=== PATIENT | female | born 1960 | race Caucasian/White ===

== ENCOUNTER → 2018-03-28 | Outpatient (CLI) | payer OTHER | END | disposition home or self-care (01) | LOC: C.LAB1850 11:23 | PROVIDERS: ATTEND Internal Medicine Cardiovascular Disease | DX: E78.5 Hyperlipidemia, unspecified (principal) ==

== ENCOUNTER 2024-09-01 09:23 | Inpatient (IN) ==
--- NOTE | 2024-08-03 13:31 | PAT Medication Instructions ---
Medication Instructions Date of Service August 03, 2024 Home Medications albuterol sulfate 90 mcg/actuation aerosol inhaler 2 puffs inhalation Q6H PRN ipratropium 0.5 mg-albuterol 3 mg (2.5 mg base)/3 mL nebulization soln 3 ml inhalation Q6H PRN atorvastatin 40 mg tablet 40 mg PO QPM omeprazole 40 mg capsule,delayed release 40 mg PO QAM potassium chloride 10 mEq tablet,extended release 20 meq PO BID torsemide 20 mg tablet 100 mg PO BID benzonatate 200 mg capsule 100 mg PO TID PRN aspirin 81 mg capsule 81 mg PO QAM baclofen 10 mg tablet 10 mg PO TID dulaglutide 4.5 mg/0.5 mL subcutaneous pen injector (Trulicity) 4.5 mg subcut WK fluticasone fur. 100 mcg-umeclid 62.5 mcg-vilant 25 mcg inhalat.powder (Trelegy Ellipta) 1 inh inhalation QPM gabapentin 600 mg tablet 600 mg PO TID insulin aspart U-100 100 unit/mL (3 mL) subcutaneous pen (Novolog FlexPen U-100 Insulin aspart) See Rx Instructions .Route .COMPLEX insulin glargine 100 unit/mL (3 mL) subcutaneous pen (Lantus Solostar U-100 Insulin) 55 unit subcut QPM meloxicam 15 mg tablet 15 mg PO QAM montelukast 10 mg tablet 10 mg PO QAM oxycodone-acetaminophen 5 mg-325 mg tablet 1 tab PO HS PRN paroxetine HCl 10 mg tablet (Paxil) 10 mg PO QAM prochlorperazine maleate 10 mg tablet 10 mg PO UD PRN sertraline 50 mg tablet 50 mg PO QAM tramadol 50 mg tablet 50 mg PO Q8H PRN trazodone 50 mg tablet 50 mg PO HS PRN STOP 7 days before surgery dulaglutide 4.5 mg/0.5 mL subcutaneous pen injector (Trulicity) 4.5 mg subcut WK Continue as directed prochlorperazine maleate 10 mg tablet 10 mg PO UD PRN(if needed) ASK your surgeon for instructions meloxicam 15 mg tablet 15 mg PO QAM ASK your prescriber and surgeon aspirin 81 mg capsule 81 mg PO QAM DO NOT take the morning of surgery potassium chloride 10 mEq tablet,extended release 20 meq PO BID torsemide 20 mg tablet 100 mg PO BID benzonatate 200 mg capsule 100 mg PO TID PRN insulin aspart U-100 100 unit/mL (3 mL) subcutaneous pen (Novolog FlexPen U-100 Insulin aspart) See Rx Instructions .Route .COMPLEX Take morning of surgery With a small sip of water, OTHERWISE NOTHING TO EAT OR DRINK AFTER MIDNIGHT: albuterol sulfate 90 mcg/actuation aerosol inhaler 2 puffs inhalation Q6H PRN (use if needed; please bring with you to hospital day of surgery if possible) ipratropium 0.5 mg-albuterol 3 mg (2.5 mg base)/3 mL nebulization soln 3 ml inhalation Q6H PRN(if needed) omeprazole 40 mg capsule,delayed release 40 mg PO QAM baclofen 10 mg tablet 10 mg PO TID gabapentin 600 mg tablet 600 mg PO TID montelukast 10 mg tablet 10 mg PO QAM paroxetine HCl 10 mg tablet (Paxil) 10 mg PO QAM sertraline 50 mg tablet 50 mg PO QAM tramadol 50 mg tablet 50 mg PO Q8H PRN(if needed) Take evening before surgery albuterol sulfate 90 mcg/actuation aerosol inhaler 2 puffs inhalation Q6H PRN(if needed) ipratropium 0.5 mg-albuterol 3 mg (2.5 mg base)/3 mL nebulization soln 3 ml inhalation Q6H PRN(if needed) atorvastatin 40 mg tablet 40 mg PO QPM potassium chloride 10 mEq tablet,extended release 20 meq PO BID torsemide 20 mg tablet 100 mg PO BID benzonatate 200 mg capsule 100 mg PO TID PRN(if needed) baclofen 10 mg tablet 10 mg PO TID fluticasone fur. 100 mcg-umeclid 62.5 mcg-vilant 25 mcg inhalat.powder (Trelegy Ellipta) 1 inh inhalation QPM gabapentin 600 mg tablet 600 mg PO TID insulin glargine 100 unit/mL (3 mL) subcutaneous pen (Lantus Solostar U-100 Insulin) 55 unit subcut QPM oxycodone-acetaminophen 5 mg-325 mg tablet 1 tab PO HS PRN(if needed) tramadol 50 mg tablet 50 mg PO Q8H PRN(if needed) trazodone 50 mg tablet 50 mg PO HS PRN(if needed) Other Notes If you have any questions please call us at [phone] or [phone] or [phone] or [phone]
--- NOTE | 2024-08-09 14:24 | Anesthesiology Consultation ---
Date of Service August 09, 2024 Assessment & Plan (1) Encounter for pre-operative examination: Chart Review Chart Review: Pending: Refer to Additional Notes / Consult section (pending cardio clearance and response from PCP regarding CXR ) and Patient seen in Pre Admission Testing - Please set up cardio clearance with cardiac optimization form- patient requesting [facility] [place] [facility] - Please fax optimization form to PCP regarding abnormal CXR and if additional treatment or work up needed - Check BSG AM DOS - Patient is NOT an ideal OPJ candidate (currently 23 hour obs) Dexcom to upper arm- did educate patient to not place Dexcom to left upper extremity for DOS - Trulicity instructions: Patient takes on (Fridays). Patient informed at PAT visit to stop 7 days prior to surgery- voiced understanding. Currently Trulicity is on back order at the pharmacy. If patient restarts Trulicity prior to surgery- the last day she can take it would be Wednesday08/25/24 in the AM. Patient voices understanding Per PAT appt on 08/09/24, no recent illness/disease exposures, illness related symptoms, or recent illness/disease positive tests. Will leave to surgeon's discretion if preop Covid testing needed Teaching & Discussion Pre-Anesthesia Teaching/Discussion Notes: Instructed NPO after midnight before surgery,except medications with 15 cc of water. Medication instructions provided according to the PAT guidelines. History Surgery Operation Date: 09/01/24 08:00 Proposed Procedures p OP: Left Reverse Total Shoulder Arthroplasty - Aramis Hanson DO Height/Weight Height: 5 ft 2 in Weight: 126.9 kg Allergies Allergy/AdvReac Type Severity Reaction Status Date / Time moxifloxacin [From Avelox] Allergy Severe Difficulty Verified 08/02/24 12:13 Breathing Sulfa (Sulfonamide Allergy Mild Rash Verified 08/02/24 12:13 Antibiotics) Medications Home Medications Medication Instructions Recorded Confirmed Last Taken albuterol sulfate 90 mcg/actuation 2 puffs inhalation Q6H PRN asthma 05/10/19 08/02/24 Unknown aerosol inhaler ipratropium 0.5 mg-albuterol 3 mg 3 ml inhalation Q6H PRN asthma 05/10/19 08/02/24 Unknown (2.5 mg base)/3 mL nebulization soln atorvastatin 40 mg tablet 40 mg PO QPM 07/21/19 08/02/24 Unknown omeprazole 40 mg capsule,delayed 40 mg PO QAM 07/21/19 08/02/24 Unknown release potassium chloride 10 mEq 20 meq PO BID 07/21/19 08/02/24 Unknown tablet,extended release torsemide 20 mg tablet 100 mg PO BID 03/06/20 08/02/24 Unknown benzonatate 200 mg capsule 100 mg PO TID PRN Cough 09/09/20 08/02/24 Unknown aspirin 81 mg capsule 81 mg PO QAM 08/02/24 08/02/24 Unknown baclofen 10 mg tablet 10 mg PO TID 08/02/24 08/02/24 Unknown dulaglutide 4.5 mg/0.5 mL 4.5 mg subcut WK 08/02/24 08/02/24 Unknown subcutaneous pen injector (Trulicity) fluticasone fur. 100 mcg-umeclid 1 inh inhalation QPM 08/02/24 08/02/24 Unknown 62.5 mcg-vilant 25 mcg inhalat.powder (Trelegy Ellipta) gabapentin 600 mg tablet 600 mg PO TID 08/02/24 08/02/24 Unknown insulin aspart U-100 100 unit/mL See Rx Instructions .Route .COMPLEX 08/02/24 08/02/24 Unknown (3 mL) subcutaneous pen (Novolog FlexPen U-100 Insulin aspart) insulin glargine 100 unit/mL (3 55 unit subcut QPM 08/02/24 08/02/24 Unknown mL) subcutaneous pen (Lantus Solostar U-100 Insulin) meloxicam 15 mg tablet 15 mg PO QAM 08/02/24 08/02/24 Unknown montelukast 10 mg tablet 10 mg PO QAM 08/02/24 08/02/24 Unknown oxycodone-acetaminophen 5 mg-325 1 tab PO HS PRN Pain 08/02/24 08/02/24 Unknown mg tablet paroxetine HCl 10 mg tablet (Paxil) 10 mg PO QAM 08/02/24 08/02/24 Unknown prochlorperazine maleate 10 mg 10 mg PO UD PRN Nausea 08/02/24 08/02/24 Unknown tablet sertraline 50 mg tablet 50 mg PO QAM 08/02/24 08/02/24 Unknown tramadol 50 mg tablet 50 mg PO Q8H PRN Pain 08/02/24 08/02/24 Unknown trazodone 50 mg tablet 50 mg PO HS PRN Sleep 08/02/24 08/02/24 Unknown Past Medical History Medical History (Updated 08/10/24 @ 10:12 by Cleo Fleming PA-C) Asthma breathing stable Autoimmune hepatitis (1991) dx 1991, treated at [facility] in [place] x 4 months - in remission x 10 years Bilateral lower leg cellulitis occasional- no current issues Chest pain intermittent x years; associated with COPD flares gets chest discomfort with activity Chronic diastolic (congestive) heart failure Occ LE edema stable Chronic pain COPD (chronic obstructive pulmonary disease) DDD (degenerative disc disease), lumbar Diabetes mellitus recently on Prednisone (for COPD exacerbation) - had significantly elevated glucose Difficult intravenous access Usually needs IV team Dyspnea on exertion has a scooter for long-distance travel Emphysema lung History of anesthesia reaction difficult to wake History of postoperative nausea and vomiting HLD (hyperlipidemia) Hx of deep venous thrombosis (1986) both legs, after , blood thinners at time, no clots since only on ASA currently Hypertension Sinus infection (07/30/24) sx started 07/30/24, saw pcp 08/04/24 (given Z pack), home covid neg 07/30/24, cough - yellow/green, congestion, nasal congestion - feels better as of 08/09/24 Sleep apnea cpap Stage 3 chronic kidney disease Exercise / Class Metabolic Activity III < 4 Walking/Shop/Light housework (mild SOB with short distance, flat surface ambualtion ) Past Surgical History Surgical History History of bilateral knee replacement History of carpal tunnel surgery of right wrist History of decompression of both ulnar nerves Hx of cervical spine surgery x2, unsure of level, has "cages", full rom Hx of cholecystectomy Hx of resection of large bowel (2018) 10 inches removed due to mesh from hernia fistula repaired 17.5 pounds of fatty tissue removed Hx of tonsillectomy Hx of umbilical hernia repair x7 Past Anesthesia History No Hx of Anesthesia Complications (with exception to PONV; slow to wake with anesthesia ) and No Family Hx of Anesthesia Complications (with exception to slow to wake (no reintubation or ICU stay)) History of PONV No Hx of Motion Sickness and History of PONV (usually given pre op anti nausea medication- helps with symptoms ) Social History Smoking Status: Current every day smoker Smoking cigarettes per day: smokes 1/2 ppd (advised) Do You Dip or Chew Tobacco: No Hx Alcohol Use: No Hx Substance Use: No substance use type: does not use Review of Systems - Chest pain- present x years - usually with activity. Feels due to COPD- usually has trouble breathing. Noted to center part of chest. Squeezing/pressure discomfort. Can last minutes- improves once breathing improves. No radiation of discomfort. No nausea. Usually occurs happens daily if COPD exacerbated. - Chronic wheezing/chronic mild cough secondary to COPD Patient denies shortness of breath at rest, reflux, palpitations. No hx of seizures, stroke, PA. No hx of blood transfusions Physical Exam Vital Signs VITALS BP 107/67 P 72 TEMP 98.7 SP02 93% on RA RESP 16 Constitutional no acute distress ENMT Mouth: no TMJ clicking Thyromental Distance: > or= 3.5 Finger Breadths (3.5) Mallampati Class: III Full denture on the top Bottom partial denture Neck + short neck, + thick neck and + limited neck extension (mild ) Respiratory normal respiratory effort; no respiratory distress Auscultation: + diminished lung sounds (throughout ) Mild wheezing throughout Cardiovascular Rate/Rhythm: regular rate and regular rhythm Heart Sounds: no murmur Vessels: no carotid bruit Heart sound diminished throughout Musculoskeletal Spine: no pain with cervical ROM Extremities: extremities normal to inspection Psychiatric Orientation: alert Lab Results Anesthesia Preop Results Results Anesthesia Widget: WBC 12.24 K/ul (4.8-10.8) H 08/09/24 Hgb 11.7 g/dl (12.0-16.0) L 08/09/24 Hct 35.3 % (37.0-47.0) L 08/09/24 Plt 240 K/uL (130-400) 08/09/24 Na 140 mmol/L (136-145) 08/09/24 K 3.9 mmol/L (3.5-5.1) 08/09/24 Cl 100 mmol/L (98-107) 08/09/24 CO2 29 mmol/L (21-32) 08/09/24 BUN 30 mg/dl (6-23) H 08/09/24 Creat 1.42 mg/dl (0.6-1.2) H 08/09/24 Glucose Level 247 mg/dl (70-99(Fasting)) H 08/09/24 PT 10.4 Seconds (9.0-12.0) 08/09/24 PTT 25 Seconds (21-31) 08/09/24 INR 1.0 (0.9-1.1) 08/09/24 HA1c 8.6 % (4.5-5.6) H 08/09/24 Blood Type O Positive 08/09/24 Antibody Screen NEGATIVE 08/09/24 Testing Laboratory Results Elevated creatinine - chronic and stable from previous records Elevated Hgb A1C- surgeon's office informed- will leave to surgeon's discretion on how to proceed Electrocardiogram Date: 08/09/24 Findings: + NSR @ (72bpm) Normal EKG per cardio Chest X-Ray Date: 08/09/24 FINDINGS: Cardiomediastinal silhouette is within normal limits. Scattered perihilar peribronchial cuffing can be seen in bronchitis. Questionable left midlung pneumonia. No pleural effusion or pneumothorax. No acute osseous abnormalities. Intervertebral disc spacer projects over the lower cervical spine. IMPRESSION: Questionable left midlung pneumonia with scattered perihilar peribronchial cuffing which can be seen in bronchitis. (Patient recently ill with "sinus infection"- seen by PCP and given Z pack 08/04/24 which was completed per patient. Will send CXR to PCP to see if additional treatment or work up needed. Patient states symptoms improved but still has slight residual- educated symptoms will need fully resolved by DOS)
[~2024-09-01 09:23] MED LIST: BUPIVACAINE 0.5 % 5 MG/1 ML PF 10ML VIAL ONE
[2024-09-01] MEDS: dexAMETHasone**PF** 10 MG/ML VIAL IV SCH (09:54)
[2024-09-01] MEDS: ACETAMINOPHEN 500 MG TAB PO SCH ×2 (09:54→14:27)
[2024-09-01] MEDS: LR 60ML/HR IV SCH (09:55)
[2024-09-01] MEDS: LR 15ML/HR IV SCH (09:55)
[2024-09-01] MEDS: GABAPENTIN 600 MG DOSE PO SCH (09:55)
[2024-09-01] MEDS: FAMOTIDINE 20 MG TAB PO SCH (09:55)
--- NOTE | 2024-09-01 10:08 | History & Physical Bridge Note ---
Date of Service September 01, 2024 History & Physical Bridge Note I have examined the patient, reviewed the History & Physical and in the interval since the performance of the History & Physical I have noted the following changes of clinical significance: no changes noted
[2024-09-01] MEDS ORDERED: fentaNYL citrate PF 100 MCG/2 ML VIAL ONE (10:18)
[2024-09-01] MEDS ORDERED: LIDOCAINE 2% 2 ML VIAL/AMP(20MG/ML) INFIL ONE (10:18)
[2024-09-01] MEDS ORDERED: MIDAZOLAM HCL 1 MG/ML 2ML VIAL ONE (10:18)
[2024-09-01] MEDS ORDERED: PROPOFOL IV EMULSION 10 MG/ML 20 ML VIAL IV ONE ×2 (10:18→10:21)
[2024-09-01] MEDS ORDERED: ONDANSETRON INJ 2 MG/ML 2 ML VIAL ONE (10:42)
[2024-09-01] MEDS: TRANEXAMIC ACID 1,000 MG **IV Pre-op IV SCH (10:49)
[2024-09-01] MEDS ORDERED: ATROPINE SULFATE 0.1 MG/ML 10ML SYR IV PRN (10:51)
[2024-09-01] MEDS ORDERED: ePHEDrine sulfate 50 MG/ML AMP IV PRN (10:51)
[2024-09-01] MEDS ORDERED: HYDROmorphone INJ 1 MG/ML SYRINGE IV PRN (10:51)
[2024-09-01] MEDS ORDERED: fentaNYL citrate PF 100 MCG/2 ML VIAL IV PRN (10:51)
[2024-09-01] MEDS ORDERED: ONDANSETRON INJ 2 MG/ML 2 ML VIAL IV PRN ×2 (10:51→13:59)
[2024-09-01] MEDS: ceFAZolin 3000MG 3,000 MG/72.5 ML BAG IV SCH (11:03)
[2024-09-01] MEDS ORDERED: BUPIVACAINE 0.5 % 5 MG/1 ML PF 10ML VIAL ONE (11:29)
[2024-09-01] MEDS: ROPIV 0.5% 246mg, Ketorolac 30mg, EPINEPHrine 0.5mg in NSS INFIL SCH (11:43)
--- OUTSIDE RECORDS SUMMARY | 2024-09-01 12:00 | External Medical Summary | Summary of Care ---
Author Name Unknown Organization [facility] Address [address] [place] [address] Phone [phone] Care Team Providers Care Burial Agent Name Role Phone PrettyGerri viera Parish DIOP Primary Care Provider [phone] Reason for Visit * Reason Onset Date Comments Follow Up 08/31/2024 Encounter Details Date Type Department Care Team (Late st Contact Info) Description 08/31/2024 12:30 PM EST Scheduled Telephone [facility] [place] [address] [place] [address] Rosa Gomez, RN [address] [place] [address] Allergies Active Allergy Reactions Criticality Noted Date Comments Moxifloxacin Hcl In Nacl Edema airway,Nausea/vomiti ng High 02/20/2010 Birds Wheezing 11/24/2016 Cephalosporins Hives 04/04/2018 Doxycycline Hyclate Nausea/vomiting 04/04/2018 Cephalexin Other (Please comment) 07/07/2018 Mouth was raw Ranitidine Rash 04/04/2018 Semaglutide 05/03/2024 Sulfa Antibiotics Anaphylaxis High 03/19/2018 Difficulty breathing Tetracycline 12/22/2023 Other Reaction(s): blisters on tongue documented as of this encounter (statuses as of 08/31/2024) Medications CPAP every night at bedtime. Apply prongs to nose daily at bedtime, settings 08/15 Active Artificial Tears 0.1-0.3 % Ophthalmic Solution (Dextran 70-Hypromellose) Instill into eye. Active Global Ease Inject Pen [place] 31G X 5 MM (Insulin Pen Needle)Indication s:Type 2 diabetes mellitus with hemoglobin A1c goal of less than 7.0% (HCC) Use up to four times daily as directed 400 Each 2 06/15/ 022 Active Albuterol Sulfate 2.5 MG/0.5ML Inhalation Nebulization Solution Inhale 0.5 mL via nebulizer every 4 hours as needed for Wheezing. Active Nebulizer Device Use as directed. Active OneTouch Ultra In Vitro Strip (Glucose Blood)Indications :Type 2 diabetes mellitus with hemoglobin A1c goal of less than 7.0% (HCC) TEST 3 TIMES A DAY. E11.9 300 Strip 3 023 Active OneTouch UltraSoft LancetsIndication s:Type 2 diabetes mellitus with hemoglobin A1c goal of less than 7.0% ([facility]) TEST 3 TIMES A DAY. E11.9 100 Each 3 023 Active Albuterol Sulfate HFA 108 (90 Base) MCG/ACT Inhalation Aerosol SolutionIndicatio ns:COPD, group C, by GOLD 2017 classification ([facility]) TAKE 2 PUFFS BY MOUTH 4 TIMES A DAY NEEDED FOR SHORTNESS OF BREATH OR WHEEZING. 54 g 1 023 Active Omeprazole 40 MG Oral Capsule Delayed Release (PriLOSEC)Indicat ions:Gastroesopha geal reflux disease without esophagitis Take 1 Capsule by mouth in the morning. 1 hour before the first meal of the day. 90 Capsule 2 023 Active buPROPion HCl ER (SR) 200 MG Oral Tablet Extended Release 12 Hour (Wellbutrin SR) Take 1 Tablet by mouth in the morning and 1 Tablet before bedtime. 180 Tablet 2 023 Active Montelukast Sodium 10 MG Oral Tablet (Singulair) Take 1 Tablet by mouth in the morning. 90 Tablet 1 023 Active Trelegy Ellipta 100-62.5-25 MCG/ACT Aerosol Powder Breath Activated (Fluticasone-Umec lidinium-Vilanter ol) Inhale 1 Puff by mouth in the morning. 60 Blister Dosing Unit 11 023 Active Additional Information Patient taking differently:1 Puff InhalationONCE, Reported on 08/22/2024 Sertraline HCl 50 MG Oral Tablet (Zoloft) Take 1 Tablet by mouth in the morning. 30 Tablet 5 Active Insulin Glargine Solostar 100 UNIT/ML Subcutaneous Solution Pen-injector (Lantus SoloStar)Indicati ons:Type 2 diabetes mellitus with hemoglobin A1c goal of less than 7.0% ([facility]) Inject 55 Units under the skin daily. 45 mL 3 023 Active NovoLOG FlexPen 100 UNIT/ML Subcutaneous Solution Pen-injector (insulin aspart) Inject 20 Units under the skin in the morning and 20 Units at noon and 20 Units in the evening. Inject before meals. - Subcutaneous - please DC VIALs - call patient when ready 60 Each 3 Active Additional Information Patient taking differently: 25 Units WITH MEALS, Inject 20 Units under the skin in the morning and 20 Units at noon and 25 Units in the evening. Inject before meals. - SubcutaneousEvening dose increased to 25 units on 08/04/2024, Reported on 08/22/2024 Prochlorperazine Maleate 10 MG Oral Tablet (Compazine) Take 1 Tablet by mouth every 6 hours as needed for Nausea. 10 Tablet Active Additional Information Patient not taking.Reported on 08/22/2024 Meloxicam 15 MG Oral Tablet (Mobic) Take 1 Tablet by mouth in the morning. for pain.. 90 Tablet 2 Active Trulicity 4.5 MG/0.5ML Subcutaneous Solution Pen-injector (Dulaglutide) Inject 4.5 mg under the skin once a week. Wednesday's 6 mL 3 Active Additional Information Patient taking differently: 1.5 mgSubcutaneous QWEEK, Wednesday'sChanged to 1.5 mg at PCP visit on 08/04, Reported on 08/22/2024 Atorvastatin Calcium 40 MG Oral Tablet (Lipitor)Indicati ons:Chronic diastolic congestive heart failure (HCC) TAKE ONE TABLET BY MOUTH EVERY MORNING 90 Tablet 3 024 Active Potassium Chloride Carmen ER 20 MEQ Oral Tablet Extended Release (Klor-Con M20) Take 1 Tablet by mouth in the morning and 1 Tablet before bedtime. 180 Tablet Active Torsemide 100 MG Oral Tablet (Demadex) TAKE BY MOUTH 1 TABLET IN THE MORNING AND 1 TABLET BEFORE BEDTIME. 180 Tablet 1 Active Baclofen 10 MG Oral Tablet (Lioresal) Take 1 Tablet by mouth in the morning and 1 Tablet at noon and 1 Tablet before bedtime. Ac tive Acetaminophen ER 650 MG Oral Tablet Extended Release (Tylenol 8 Hour Arthritis Pain) Take 1 Tablet by mouth every 8 hours as needed. Active Systane Complete 0.6 % Ophthalmic Solution (Propylene Glycol) Instill 1 Drop into eye 4 times a day as needed for Dry eyes. 10 mL 12 Active Ipratropium-Albut gregg 0.5-2.5 (3) MG/3ML Inhalation Solution (Duoneb) Inhale 3 mL by mouth every 6 hours as needed. Active traMADol HCl 50 MG Oral Tablet (Ultram) Take 1 Tablet by mouth every 8 hours as needed for Pain, Moderate. Active Fenofibrate 145 MG Oral Tablet (Tricor) Take 1 Tablet by mouth in the morning. Active Gabapentin 300 MG Oral Capsule (Neurontin) Take 800 mg by mouth in the morning and 800 mg at noon and 800 mg before bedtime. Active Dexcom G7 Motor Vehicle Assembler Device Use as directed. Active Dexcom G7 Sensor Use as directed every 10 days. Active oxyCODONE HCl 5 MG Oral Capsule (Oxy IR) Take 1 Capsule by mouth 2 times a day as needed for Pain, Severe. Active documented as of this encounter (statuses as of 08/31/2024) Active Problems Problem Noted Date Diagnosed Date DDD (degenerative disc disease), lumbar 09/15/19 24 Assessment & Plan (08/21/2024 7:31 AM EST): Tramadol 50mg Q8hrs prn Tylenol ER 650 Q8H prn Baclofen 10mg TID prn Gabapentin 300mg TID Chronic kidney disease, stage 3b 02/08/2023 Overview: Per CKD protocol Benign hypertension with stage 3b chronic kidney disease 02/08/2023 Overview: Per CKD protocol Age-related nuclear cataract of both eyes 2022 Blurred vision, bilateral 06/25/2022 Impaired mobility and endurance 06/06/2022 Type 2 diabetes mellitus with hyperglycemia 01/2022 Assessment & Plan (08/16/2024 8:10 AM EST): Has not had any BSGs > 250mg/dl since being discharged from the hospital. [facility] is out of [employer]. Recommended pt call other local pharmacies and have prescription transferred to a pharmacy that has [employer] in stock. Last A1C was 8.1 on 08/02/24 Novolog flex pen Lantus insulin Has Geoffrey Chronic heart failure with p reserved ejection fraction (HFpEF) 06/04/2022 Asthma, moderate persistent 05/08/2022 COPD, group D, by GOLD 2017 classification 02/09 Overview: Per COPD GOLD Classification Assessment & Plan (08/16/2024 7:56 AM EST): Trelegy 1 puff daily, Singulair 10mg daily, Albuterol HFA prn, Duonebs TID, Albuterol nebs prn Smoking cessation discussed. Pt actively trying to quit. Controlled substance agreement terminated 2021 Overview (06/24/2023): CKD, CHF, EDY in place UDS showing none of prescribed med. Has MTDM visit 07/06/23 Amee Malone MD 06/24/2023 Polyneuropathy, unspecified 09/02/2021 Atherosclerosis of [place] co ronary artery without angina pectoris 09/02/2021 Assessment & Plan (08/16/2024 7:52 AM EST): Atorvastatin 40mg daily Followed by cardiology Major depressive disorder with single episode History of 2019 novel coronavirus disease (COVID -19) 09/02/2021 Secondary diabetes mellitus with HHNC (hyperglycemia hyperosmolar non-ketotic coma) 08/27/2021 Hypomagnesemia 08/27/2021 Obesity hypoventilation syndrome 08/09/2021 Food insecurity 04/07/2021 Overview: Per [facility] Protocol At high risk for falls 10/25/2020 Gastroesophageal reflux disease without esophagi tis 10/17/2020 Assessment & Plan (08/21/2024 7:25 AM EST): Omeprazole 40mg daily Ambulatory dysfunction 09/20/2020 Assessment & Plan (08/21/2024 7:31 AM EST): Uses walker Fall at home 09/20/2020 Hyponatremia 09/19/2020 Transaminitis 12/25/2019 Morbid obesity 09/12/2019 Hypertensive heart and kidne y disease with chronic diastolic congestive heart failure and stage 3b chronic kidney disease 04/11/2019 Assessment & Plan (08/21/2024 7:24 AM EST): HF - Torsemide 100mg daily, Potassium 20mEq BID. Weighs daily and keeps a log. Type 2 diabetes mellitus wit h stage 3b chronic kidney disease, with long-term current use of insulin 04/11/2019 Assessment & Plan (08/16/2024 8:09 AM EST): [facility] is out of [employer]. Recommended pt call other local pharmacies and have prescription transferred to a pharmacy that has [employer] in stock. Last A1C was 8.1 on 08/02/24 Novolog flex pen Lantus insulin Has Geoffrey Morbid obesity with BMI of 50.0-59.9, adult 01/28 Overview: Per Obesity protocol - Primary osteoarthritis involving multiple joints 11/09/2018 Seasonal allergic rhinitis 11/09/2018 Chronic diarrhea 11/09/2018 History of resection of large bowel 11/09/2018 Atherosclerosis of aorta 09/08/2018 Body mass index (BMI) greater than or equal to 7 0 in adult 08/08/2018 Overview: Per Obesity protocol #1 Polypharmacy 05/18/2018 Chronic pain syndrome 04/06/2018 MARCELL (obstructive sleep apnea) 04/08/2010 Assessment & Plan (08/16/2024 7:56 AM EST): Has bipap COUGHLIN RESEARCH OTHER*[id number] 04/08/2010 HTN, goal below 140/90 03/24/2010 Mood disorder 03/24/2010 Overview (06/22/2017): ICD-10 update of inactive term Chronic bronchitis 03/24/2010 Tobacco use disorder 12/06/2009 Cervical radiculopathy at C5 Chronic midline low back pain with sciatica Dyslipidemia, goal LDL below 100 Assessment & Plan (08/16/2024 8:02 AM EST): Atorvastatin 40mg daily documented as of this encounter (statuses as of 08/31/2024) Resolved Problems Problem Noted Date Diagnosed Date Resolved Date Hypokalemia 11/20/2022 09/15/2023 Accessory skin tags 11/20/2022 09/15/19 24 Acute non-recurrent frontal sinusitis 06/25/2022 07/14/2023 Stage 3b chronic kidney disease 06/05/2022 02/11/2023 Diarrhea 06/05/2022 06/07/2022 Hyponatremia 06/04/2022 06/07/2022 CHRIS (acute kidney injury) 06/04/2022 Asthma in remission 05/08/2022 05/08/20 Asthma, mild persistent 05/08/202206/30 Intermittent asthma with rel iever use up to twice per week 05/08/2022 07/14/2023 Chronic kidney disease, stage 3a 03/09/2022 02/11/2023 Overview: Per CKD protocol COVID-19 virus infection 08/27/2021 Urinary retention 08/09/2021 08/11/2021 Anemia 08/09/2021 08/11/2021 SOB (shortness of breath) 08/05/2021 History of recent fall 10/25/202009/02 Hyperparathyroidism 10/17/2020 09/02/19 22 Closed nondisplaced fracture of condyle of right femur with nonunion 09/21/2020 09/02/2021 Generalized weakness 09/20/2020 021 Chronic kidney disease, stage IV (severe) 09/20/2020 10/10/2020 Right knee pain 09/20/2020 07/14/2023 Acute on chronic heart failu re with preserved ejection fraction 05/16/2020 07/14/2023 Acute on chronic kidney failure 12/25/2019 08/11/2021 Hyponatremia 12/25/2019 09/12/2021 Metabolic acidosis, increased anion gap (IAG) 12/25/19 20 12/27/2019 Dehydration 12/25/2019 12/27/2019 Leukocytosis 12/25/2019 12/27/2019 Autoimmune hepatitis 04/11/2019 020 Morbid obesity 04/11/2019 05/12/2019 Type 2 diabetes mellitus wit h hemoglobin A1c goal of less than 7.0% 03/12/2019 09/15/2023 Heart failure, diastolic, wi th acute decompensation 02/10/2019 08/11/2021 Type 2 diabetes mellitus wit h chronic kidney disease 02/10/2019 03/12/2019 COPD exacerbation 02/06/2019 08/11/2021 Overview: Per COPD GOLD Classification SIRS (systemic inflammatory response syndrome) 11/09/2018 02/10/2019 Generalized abdominal pain 11/09/2018 0 03/12/2019 Other chest pain 11/09/2018 03/12/2019 Influenza A 11/09/2018 12/06/2018 Pneumonia due to infectious organism 11/09/2018 12/06/2018 Benign hypertension with CKD (chronic kidney disease) stage III 07/11/2018 07/16/2022 Overview: Per CKD protocol #1 Hypokalemia 03/22/2018 09/02/2021 Intentional drug overdose 03/19/2018 Intentional acetaminophen poisoning 03/19/2018 09/02/2021 Symptomatic cholelithiasis 01/15/2017 0 09/12/2021 DVT prophylaxis 10/23/2015 03/12/2019 Panniculitis 07/22/2015 10/16/2019 ATN (acute tubular necrosis) 07/22/2015 10/16/2019 Rhinovirus infection 07/07/2015 023 Chronic obstructive pulmonar y disease with acute exacerbation 07/06/2015 03/12/2019 Abrasion and/or friction bur n of abdominal wall with infection 01/24/2012 03/12/2019 FLORECITA Study Research*[id number] 12/12/2010 02/16/2011 Adult body mass index 60.0-69.9 12/03/2010 08/12/2018 Overview: Per Obesity protocol #1 Body mass index (BMI) of 40.0-44.9 in adult 06/13/2010 12/03/2010 Overview (2015): ICD-10 update of inactive term [employer] Research*[id number] 05/12/2010 10/18/2018 Overview (11/10/2015): Effect of Bariatric Surgery on Obesity-Related Retinopathy Obesity, morbid (more than 1 00 lbs over ideal weight or BMI > 40) 12/06/2009 07/15/2018 Overview (11/18/2015): ICD-10 update of inactive term COPD, severity to be determined 12/06/2009 02/12/2022 Hepatitis 10/03/2002 10/16/2019 Anxiety state 10/03/2002 03/12/2019 Dyslipidemia, goal to be determined 10/03/2002 04/05/2019 Asthma 07/14/2023 documented as of this encounter (statuses as of 08/31/2024) Immunizations Name Administration Dates Next Due COVID-19 mRNA, LNP-s, No Pre serve, 2-Dose Series (AAVLife) 11/27/2020,11/01/2020 Hepatitis B, 20+ yrs 02/07/2020,08/21/2019,07/12 Pneumococcal Conjugate Vacc, 13 Valent (Prevnar) 09/04/2020 Pneumococcal Polysaccharide PPV23 (Pneumovax) 05/11/2019 Seasonal Influenza, PF, 6 M & above, IM , (FluLaval or Fluzone) 07/14/2023,05/08/2022,05/08/2021,06/11,05/11/2019 Seasonal Influenza, Quadriva lent, No Preserve, IM 06/24/2016 TDAP (age 10 and older)(Boostrix) 07/12/2019 Zoster Vaccine Recombinant (Shingrix) 01/15/2020 ,09/12/2019 documented as of this encounter Social History Tobacco Use Types Packs/Day Years Used Date Smoking Tobacco: Former Cigarettes 0.5 36.7 0 05/20/1987 - 02/08/2024 Smokeless Tobacco: Never Alcohol Use Standard Drinks/Week Comments No 0 (1 standard drink = 0.6 oz pur e alcohol) PHQ-2 Answer Date Recorded PHQ Adult Total Score 2 12/22/2023 Hunger Vital Sign Answer Date Recorded Within the past 12 months, y ou worried that your food would run out before you got the money to buy more. Sometimes true Within the past 12 months, t he food you bought just didn't last and you didn't have money to get more. Sometimes true Childcare Answer Date Recorded Do you feel overwhelmed with taking care of a child, family member or friend? No 08/22/2024 Does your family need help f inding childcare? (Household - for ages 0-17 years) Not on file 08/22/2024 Clothing Answer Date Recorded Have you been unable to get clothing when it was really needed? No 08/22/2024 Is your family able to get c lothes or diapers when needed? (Household - for ages 0-17 years) Not on file 08/22/2024 Personal Safety Answer Date Recorded Do you feel unsafe or have concerns for your saf ety? No 08/22/2024 Do you have concerns for you r family's safety? (Household - for ages 0-17 years) Not on file 08/22/2024 Utilities Answer Date Recorded Do you have trouble paying y our heating, water, or electric bill? No 08/22/2024 Is your family able to pay t he heat, water, or electric bill? (Household - for ages 0-17 years) Not on file 08/22/2024 Does your family have access to good internet? (Household - for ages 0-17 years) Not on file 08/22/2024 Employment Status Answer Date Recorded Are you unemployed or without regular income? No 08/22/2024 Does the household have a re gular source of income? (Household - for ages 0-17 years) Not on file 08/22/2024 Social Connections Answer Date Recorded How often do you feel lonely or isolated from th ose around you? Often 08/22/2024 Financial Resource Strain Answer Date R ecorded Do you have any trouble payi ng for your medications, or do you think you might in the future? No 08/22/2024 Does your family have troubl e paying for medicine? (Household - for ages 0-17 years) Not on file 08/22/2024 Transportation Needs Answer Date Record ed READ ONLY Do you have troubl e getting a ride to medical visits or work? Never True 08/22/2024 Does your family have a hard time getting a ride to doctors visits? (Household - for ages 0-17 years) Not on file 08/22/2024 Has lack of transportation k ept you from medical appointments, meetings, work, or from getting things needed for daily living? Check all that apply. No 08/22/2024 Do you (or your family) have trouble finding or paying for a ride (transportation)? (Household - for ages 0-17 years) Not on file 08/22/2024 Housing Stability Answer Date Recorded Do you currently live in a s helter or have no steady place to sleep at night? No 08/22/2024 READ ONLY Do you think you a re at risk of becoming homeless? No 08/22/2024 Does your family worry about paying for your home or becoming homeless? (Household - for ages 0-17 years) Not on file 1 10/23/2023 Are you homeless or worried that you might be in the future? No 08/22/2024 Are you (or your family) miladis eless or worried that you might be in the future? (Household - for ages 0-17 years) Not on file Food Insecurity Answer Date Recorded Do you need food for this week? No 08/22/2024 Are you able to get enough f ood for your family? (Household - for ages 0-17 years) Not on file 08/22/2024 Does your family need food t his week? (Household - for ages 0-17 years) Not on file 08/22/2024 Do you always have enough fo od for your family? (Household - for ages 0-17 years) Not on file 08/22/2024 Comments No Sex and Gender Information Value Date Recorded Sex Assigned at Female 02/10/2019 2:06 PM EDT Legal Sex Female 5:23 AM EST Gender Identity Female 02/10/2019 2:06 PM EDT Sexual Orientation Straight 02/10/2019 2: 06 PM EDT Occupation Industry Job Start Date Job End Date disabled secondary to hepatitis Not on file Not on fi le Not on file documented as of this encounter Functional Status * Are you deaf or do you have serious difficulty hearing? Answer Date of Assessment Author No 06/04/2022 11:05 PM EDT Radha Nunez RN * Are you blind or do you have serious difficulty seeing, even when wearing glasses? Answer Date of Assessment Author No 06/04/2022 11:05 PM EDT Radha Nunez RN * Do you have serious difficulty walking or climbing stairs? (5 years old or older) Answer Date of Assessment Author Yes 06/05/2022 2:10 PM EDT Ivan Haines MSW * Do you have difficulty dressing or bathing? (5 years old or older) Answer Date of Assessment Author No 06/04/2022 11:05 PM EDT Radha Nunez RN * Because of a physical, mental, or emotional condition, do you have difficulty doing errands alone such as visiting a doctors office or shopping? (15 years old or older) Answer Date of Assessment Author No 06/04/2022 11:05 PM LORRAINET Radha Nunez RN documented as of this encounter Mental Status * Because of a physical, mental, or emotional condition, do you have serious difficulty concentrating, remembering, or making decisions? (5 years old or older) Answer Entry Date Author No 06/04/2022 11:05 PM LORRAINET Radha Nunez RN documented in this encounter Miscellaneous Notes * Telephone Encounter - Rosa Gomez RN - 08/31/2024 3:31 PM EST Patient sent text to my work phone requesting a call: Placed call and Abbi answers and reports surgery is scheduled for tomorrow 09/01/24 arrival at 9:30 amand surgery @ 11 am. Her niece is taking her and she is expected to have an overnight stay. She is scheduled for left total shoulder replacement at [facility] with Dr. Hanson. She is fearful because she lives alone she will not be able to care for herself independently. She reports when they called to give her time of arrival for surgery to discuss with team tomorrow. I recommended she call the back of her insurance card to see if her insurance would cover a short term stay at SNF for rehab. She is agreeable to SNF for rehab. I made her aware after her surgery she should be evaluated by PT/OT and if she feels she cannot care for herself independently she needs to let them know. She verbalizes understanding of above. I consulted with SERENE Mar and my RM Yg that validated the above information. I am scheduled 09/05/24 post surgery HV. documented in this encounter Plan of Treatment Upcoming Encounters Date Type Department Care Team (Late st Contact Info) Description 09/05/2024 4:00 PM EST Home Visit [facility] [place] [address] [place] [address] Rosa Gomez RN [address] [place] [address] 01/10/2025 2:00 PM EDT Office Visit Optometry, [facility] [address] [place] [address] Aramis Alvarado, OD [address] [place] [address] Health Maintenance Due Date Last Done Comments HPV/Co-Test 12/11/1991 Cologuard 2006 Colonoscopy 2006 Colorectal Cancer Screening 2006 Fecal Occult Blood Test 2006 Sigmoidoscopy 2006 Cervical Cancer Screening 11/25/2019 Pap Smear 11/25/2019 11/24/2016 (Refu sed), 10/19/2002 COVID-19 Vaccine (3 - Pfizer risk series) 12/25/2020 11/27/2020, 11/01/2020 Mammogram 12/05/2023 12/04/2022, 07/30, 10/24/2002 CKD PHOS USE SMARTSET [id number] 02/20/2024 06/2 10/2022, 08/27/2021, 08/10/2021, Additional history exists Albumin/Creatinine Ratio 03/01/2024 023, 05/08/2022, 08/15/2019, Additional history exists Diabetic Foot Exam 07/14/2024 07/14/2023, 1 09/13/2022, 06/15/2022, Additional history exists Diabetic Eye Exam 12/16/2024 12/17/2023, , 12/17/2023, Additional history exists Depression Monitoring 12/21/2024 12/22/2023 HbA1c 01/31/2025 08/02/2024, 050 04/2024, 09/15/2023, Additional history exists GFR 02/05/2025 08/07/2024, 1211/2023, 03/05/2024, Additional history exists CKD HGB USE SMARTSET [id number] 08/07/202508/07, 08/07/2024, 08/02/2024, Additional history exists O2 ASSESSMENT COMPLETED IN PAST YEAR FOR COPD 08/22/2025 08/22/2024 Pneumococcal Vaccine: 50+ Years (3 of 3 - PCV20 or PCV21) 09/04/2025 09/04/2020, 05/11/2019 DTap/Tdap Vaccines (2 - Td or Tdap) 07/12/2029 07/12/2019 Zoster Vaccines Completed 01/15/2020, 09/12/2019 Hepatitis B Vaccine Completed 02/07/2020, 08/21/2019, 07/12/2019 Alpha-1 Antitrypsin Completed 06/04/2022 Influenza Vaccine (FLU shot) Completed 11/2023, 07/14/2023, 05/08/2022, Additional history exists HPV (Gardasil) Vaccine Aged Out No lo nger eligible based on patient's age to complete this topic MENINGOCOCCAL (MENACTRA/MENVEO) Aged Out No longer eligible based on patient's age to complete this topic documented as of this encounter Medical Devices Implanted Type Area Operations Manager Station Device Identifier Shelf Expiration Date Model / Serial / Lot Wilderttgalina 16 X 20 Firm [id number] ( 320 Units ) - [id number] Implanted:Qty : 320 on 10/15/2015 by Rowan Borges MD at [place] [facility] Tissue - Non Human N/A: Abdomen [employer] KIRA 05/29/2016 [id number] / / [id number] documented as of this encounter Advance Directives Documents on File Type Date Recorded Patient Integrated Circuit Design Engineer Expl anation POLST 04/17/2019 2:05 PM POLST * Full Code (Latest Code Status on File) Date Activated Date Inactivated Comments 06/04/2022 11:13 PM 06/07/2022 4:48 PM This order reflects the patients wishes and were consensually agreed upon. Question Answer Comments Discussion of Advance Direct heriberto occurred with: Not Discussed due to patient's condition Does the patient have a Living Will? No Does the patient have Health Care Power of [employer] Tanner? No * Full Code Date Activated Date Inactivated Comments 06/04/2022 10:50 PM 06/04/2022 11:13 PM This order reflects the patients wishes and were consensually agreed upon. Question Answer Comments Discussion of Advance Direct heriberto occurred with: Not Discussed due to patient's condition Does the patient have a Living Will? No Does the patient have Health Care Power of Fur Tanner? No * Full Code Date Activated Date Inactivated Comments 08/27/2021 11:24 PM 08/28/2021 9:57 PM This orde r reflects the patients wishes and were consensually agreed upon. Question Answer Comments Discussion of Advance Directives occurred with: Not Discussed Does the patient have a Living Will? No Does the patient have Health Care Power of Attor terese? No * Full Code Date Activated Date Inactivated Comments 08/09/2021 4:19 AM 08/11/2021 7:07 PM This order reflects the patients wishes and were consensually agreed upon. Question Answer Comments Discussion of Advance Directives occurred with: Patient Does the patient have a Living Will? No Does the patient have Health Care Power of Attor terese? No * Full Code Date Activated Date Inactivated Comments 09/22/2020 1:26 PM 09/25/2020 10:12 PM This order reflects the patients wishes and were consensually agreed upon. Question Answer Comments Discussion of Advance Directives occurred with: Patient Does the patient have a Living Will? No Does the patient have Health Care Power of Attor terese? No Care Teams Burial Agent Relationship Specialty Start Date End Date Gerri Olsen DO PCP - General Family Medicine 12/17/23 documented as of this encounter
--- OUTSIDE RECORDS SUMMARY | 2024-09-01 12:01 | External Medical Summary | Summary of Care ---
Author Name Unknown Organization [facility] Address [address] [place] [address] Phone [phone] Care Team Providers Care Photographic Process Attendant Name Role Phone Pretty Gerrimalika Lugo DO Primary Care Provider [phone] Encounter Details Date Type Department Care Team (Late st Contact Info) Description 08/14/2024 2:30 PM EST Home Visit [facility] [place] [facility] [address] [place] [address] Simran Castano PA-C [address] [place] [address] Atherosclerosis of [place] coronary artery of [place] heart without angina pectoris*; Hypertensive heart and kidney disease with chronic diastolic congestive heart failure and stage 3b chronic kidney disease ([facility]); COPD, group D, by GOLD 2017 classification ([facility]); MARCELL (obstructive sleep apnea); Dyslipidemia, goal LDL below 100; Type 2 diabetes mellitus with stage 3b chronic kidney disease, with long-term current use of insulin ([facility]); Type 2 diabetes mellitus with hyperglycemia, with long-term current use of insulin ([facility]); Gastroesophageal reflux disease without esophagitis; Degeneration of intervertebral disc of lumbar region, unspecified whether pain present; Ambulatory dysfunction Allergies Active Allergy Reactions Criticality Noted Date Comments Moxifloxacin Hcl In Nacl Edema airway,Nausea/vomiti ng High 02/20/2010 Birds Wheezing 11/24/2016 Cephalosporins Hives 04/04/2018 Doxycycline Hyclate Nausea/vomiting 04/04/2018 Cephalexin Other (Please comment) 07/07/2018 Mouth was raw Ranitidine Rash 04/04/2018 Semaglutide 05/03/2024 Sulfa Antibiotics Anaphylaxis High 03/19/2018 Difficulty breathing Tetracycline 12/22/2023 Other Reaction(s): blisters on tongue documented as of this encounter (statuses as of 08/21/2024) Medications Multiple Vitamin (MULTI-VITAMIN DAILY) Tablet Take 1 Tablet by mouth in the morning. Take 1 tab by mouth daily. Active CPAP every night at bedtime. Apply prongs to nose daily at bedtime, settings 08/15 Active Artificial Tears 0.1-0.3 % Ophthalmic Solution (Dextran 70-Hypromellose) Instill into eye. Active Global Ease Inject Pen [place] 31G X 5 MM (Insulin Pen Needle)Indicatio ns:Type 2 diabetes mellitus with hemoglobin A1c goal of less than 7.0% (HCC) Use up to four times daily as directed 400 Each 2 2021 Active Albuterol Sulfate 2.5 MG/0.5ML Inhalation Nebulization Solution Inhale 0.5 mL via nebulizer every 4 hours as needed for Wheezing. Active Nebulizer Device Use as directed. Active OneTouch Ultra In Vitro Strip (Glucose Blood)Indication s:Type 2 diabetes mellitus with hemoglobin A1c goal of less than 7.0% (HCC) TEST 3 TIMES A DAY. E11.9 300 Strip 3 2022 Active OneTouch UltraSoft LancetsIndicatio ns:Type 2 diabetes mellitus with hemoglobin A1c goal of less than 7.0% (HCC) TEST 3 TIMES A DAY. E11.9 100 Each 3 2022 Active Albuterol Sulfate HFA 108 (90 Base) MCG/ACT Inhalation Aerosol SolutionIndicati ons:COPD, group C, by GOLD 2017 classification (HCC) TAKE 2 PUFFS BY MOUTH 4 TIMES A DAY NEEDED FOR SHORTNESS OF BREATH OR WHEEZING. 54 g 1 2022 Active Omeprazole 40 MG Oral Capsule Delayed Release (PriLOSEC)Indica tions:Gastroesop hageal reflux disease without esophagitis Take 1 Capsule by mouth in the morning. 1 hour before the first meal of the day. 90 Capsule 2 2022 Active buPROPion HCl ER (SR) 200 MG Oral Tablet Extended Release 12 Hour (Wellbutrin SR) Take 1 Tablet by mouth in the morning and 1 Tablet before bedtime. 180 Tablet 2 2022 Active Montelukast Sodium 10 MG Oral Tablet (Singulair) Take 1 Tablet by mouth in the morning. 90 Tablet 1 2022 Active Trelegy Ellipta 100-62.5-25 MCG/ACT Aerosol Powder Breath Activated (Fluticasone-Ume clidinium-Vilant gregg) Inhale 1 Puff by mouth in the morning. 60 Blister Dosing Unit 11 2022 Active Additional Information Patient taking differently:1 Puff InhalationONCE, Reported on 08/07/2024 Sertraline HCl 50 MG Oral Tablet (Zoloft) Take 1 Tablet by mouth in the morning. 30 Tablet 5 2022 Active FreeStyle Geoffrey 2 [place] DeviceIndication s:Type 2 diabetes mellitus with hemoglobin A1c goal of less than 7.0% (HCC) USE TO Test 4 times daily 1 Each 2022 Active Insulin Glargine Solostar 100 UNIT/ML Subcutaneous Solution Pen-injector (Lantus SoloStar)Indicat ions:Type 2 diabetes mellitus with hemoglobin A1c goal of less than 7.0% (HCC) Inject 55 Units under the skin daily. 45 mL 3 2022 Active Additional Information Patient taking differently: 50 UnitsSubcutaneous Daily(Non-Specified), Reported on 08/07/2024 FreeStyle Geoffrey 2 SensorIndication s:Type 2 diabetes mellitus with hemoglobin A1c goal of less than 7.0% ([facility]) Use as directed. Replace sensor every 14 days 6 Each 2 2022 Active NovoLOG FlexPen 100 UNIT/ML Subcutaneous Solution Pen-injector (insulin aspart) Inject 20 Units under the skin in the morning and 20 Units at noon and 20 Units in the evening. Inject before meals. - Subcutaneous - please DC VIALs - call patient when ready 60 Each 3 2022 Active Additional Information Patient taking differently: Inject 20 Units under the skin in the morning and 20 Units at noon and 25 Units in the evening. Inject before meals. - SubcutaneousEvening dose increased to 25 units on 08/04/2024, Reported on 08/10/2024 Prochlorperazine Maleate 10 MG Oral Tablet (Compazine) Take 1 Tablet by mouth every 6 hours as needed for Nausea. 10 Tablet 2023 Active Additional Information Patient not taking.Reported on 08/07/2024 Meloxicam 15 MG Oral Tablet (Mobic) Take 1 Tablet by mouth in the morning. for pain.. 90 Tablet 2 2023 Active B-12 1000 MCG Oral Tablet Take 1 Tablet by mouth in the morning. Take 1 tab by mouth daily in the morning. 30 Tablet 3 2023 Active D3-1000 25 MCG (1000 UT) Oral Capsule (Cholecalciferol ) Take 1 Capsule by mouth in the morning. 90 Capsule 1 2023 Active Trulicity 4.5 MG/0.5ML Subcutaneous Solution Pen-injector (Dulaglutide) Inject 4.5 mg under the skin once a week. Wednesday's 6 mL 3 2023 Active Additional Information Patient taking differently: 1.5 mgSubcutaneous QWEEK, Wednesday'sChanged to 1.5 mg at PCP visit on 08/04, Reported on 08/10/2024 Atorvastatin Calcium 40 MG Oral Tablet (Lipitor)Indicat ions:Chronic diastolic congestive heart failure (HCC) TAKE ONE TABLET BY MOUTH EVERY MORNING 90 Tablet 3 2023 Active Potassium Chloride Carmen ER 20 MEQ Oral Tablet Extended Release (Klor-Con M20) Take 1 Tablet by mouth in the morning and 1 Tablet before bedtime. 180 Tablet 2023 Active Torsemide 100 MG Oral Tablet (Demadex) TAKE BY MOUTH 1 TABLET IN THE MORNING AND 1 TABLET BEFORE BEDTIME. 180 Tablet 1 2023 Active Baclofen 10 MG Oral Tablet (Lioresal) Take 1 Tablet by mouth in the morning and 1 Tablet at noon and 1 Tablet before bedtime. Active Acetaminophen ER 650 MG Oral Tablet Extended Release (Tylenol 8 Hour Arthritis Pain) Take 1 Tablet by mouth every 8 hours as needed. Active Systane Complete 0.6 % Ophthalmic Solution (Propylene Glycol) Instill 1 Drop into eye 4 times a day as needed for Dry eyes. 10 mL 12 2023 Active Ipratropium-Albu terol 0.5-2.5 (3) MG/3ML Inhalation Solution (Duoneb) Inhale 3 mL by mouth every 6 hours as needed. Active traMADol HCl 50 MG Oral Tablet (Ultram) Take 1 Tablet by mouth every 8 hours as needed for Pain, Moderate. Active Fenofibrate 145 MG Oral Tablet (Tricor) Take 1 Tablet by mouth in the morning. Act lea Gabapentin 300 MG Oral Capsule (Neurontin) Take 2 Capsules by mouth in the morning and 2 Capsules at noon and 2 Capsules before bedtime. 2023 Active Gabapentin 300 MG Oral Capsule (Neurontin) Take 1 Capsule by mouth in the morning and 1 Capsule at noon and 1 Capsule before bedtime. 08/14 Discontinued metOLazone 2.5 MG Oral Tablet (Zaroxolyn) Take 1 Tablet by mouth in the morning. 08/14 Discontinued( Medication List Clean Up) Fexofenadine HCl 180 MG Oral Tablet (Chelsey) Take 1 Tablet by mouth. 08/14 Discontinued( Medication List Clean Up) Spironolactone 25 MG Oral Tablet (Aldactone) Take 1 Tablet by mouth in the morning. 08/14 Discontinued( Medication List Clean Up) documented as of this encounter (statuses as of 08/21/2024) Active Problems Problem Noted Date Diagnosed Date DDD (degenerative disc disease), lumbar 09/15/19 Assessment & Plan (08/21/2024 7:31 AM EST): [...] 250mg/dl since being discharged from the hospital. [facility] Pharmacy is out of Trulicity. Recommended pt call other local pharmacies and have prescription transferred to a pharmacy that has Trulicity in stock. Last A1C was 8.1 on [...] MD 06/24/2023 Polyneuropathy, unspecified 09/02/2021 Atherosclerosis of [place] co ronary artery without angina pectoris 09/02/2021 [...] Assessment & Plan (08/16/2024 8:09 AM EST): [facility] Pharmacy is out of NoiseFree. Recommended pt call other local pharmacies and have prescription transferred to a pharmacy that has NoiseFree in stock. Last A1C was 8.1 on [...] 7:56 AM EST): Has bipap COUGHLIN RESEARCH OTHER*[id number] 04/08/2010 HTN, goal below 140/90 03/24/2010 Mood disorder 03/24/2010 Overview (06/22/2017): ICD-10 update of inactive term Chronic bronchitis 03/24/2010 Tobacco use disorder 12/06/2009 Cervical radiculopathy at C5 Chronic midline low back pain with sciatica Dyslipidemia, goal LDL below 100 Assessment & Plan (08/16/2024 8:02 AM EST): Atorvastatin 40mg daily documented as of this encounter (statuses as of 08/21/2024) Resolved Problems Problem Noted Date Diagnosed Date [...] wall with infection 01/24/2012 03/12/2019 FLORECITA Study Research*[id number] 12/12/2010 02/16/2011 Adult body mass index 60.0-69.9 12/03/2010 08/12/2018 Overview: Per Obesity protocol #1 Body mass index (BMI) of 40.0-44.9 in adult 06/13/2010 12/03/2010 Overview (2015): ICD-10 update of inactive term Jordan Hubbard*[id number] 05/12/2010 10/18/2018 Overview (11/10/2015): Effect of Bariatric [...] as of this encounter (statuses as of 08/21/2024) Immunizations Name Administration Dates Next Due COVID-19 mRNA, LNP-s, No Pre serve, 2-Dose Series ([employer]) 11/27/2020,11/01/2020 Hepatitis B, 20+ yrs 02/07/2020,08/21/2019,07/12 Pneumococcal [...] a child, family member or friend? No 12/22/2023 Does your family need help f inding childcare? (Household - for ages 0-17 years) Not on file 12/22/2023 Clothing Answer Date Recorded Have you been unable to get clothing when it was really needed? No 12/22/2023 Is your family able to get c lothes or diapers when needed? (Household - for ages 0-17 years) Not on file 12/22/2023 Personal Safety Answer Date Recorded Do you feel unsafe or have concerns for your saf ety? No 12/22/2023 Do you have concerns for you r family's safety? (Household - for ages 0-17 years) Not on file 12/22/2023 Utilities Answer Date Recorded Do you have trouble paying y our heating, water, or electric bill? No 12/22/2023 Is your family able to pay t he heat, water, or electric bill? (Household - for ages 0-17 years) Not on file 12/22/2023 Does your family have access to good internet? (Household - for ages 0-17 years) Not on file 12/22/2023 Employment Status Answer Date Recorded Are you unemployed or without regular income? No 12/22/2023 Does the household have a re gular source of income? (Household - for ages 0-17 years) Not on file 12/22/2023 Social Connections Answer Date Recorded How often do you feel lonely or isolated from th ose around you? Never 12/22/2023 Financial Resource Strain Answer Date R ecorded Do you have any trouble payi ng for your medications, or do you think you might in the future? No 12/22/2023 Does your family have troubl e paying for medicine? (Household - for ages 0-17 years) Not on file 12/22/2023 Transportation Needs Answer Date Record ed READ ONLY Do you have troubl e getting a ride to medical visits or work? Never True 12/22/2023 Does your family have a hard time getting a ride to doctors visits? (Household - for ages 0-17 years) Not on file 12/22/2023 Has lack of transportation k ept you from medical appointments, meetings, work, or from getting things needed for daily living? Check all that apply. (Adult - for ages 18 years and over) Not on file 12/22/2023 Do you (or your family) have trouble finding or paying for a ride (transportation)? (Household - for ages 0-17 years) Not on file 12/22/2023 Housing Stability Answer Date Recorded Do you currently live in a s helter or have no steady place to sleep at night? No 12/22/2023 READ ONLY Do you think you a re at risk of becoming homeless? No 12/22/2023 Does your family worry about paying for your home or becoming homeless? (Household - for ages 0-17 years) Not on file 0 12/22/2023 Are you homeless or worried that you might be in the future? (Adult - for ages 18 years and over) Not on file Are you (or your family) miladis eless or worried that you might be in the future? (Household - for ages 0-17 years) Not on file Food Insecurity Answer Date Recorded Do you need food for this week? No 12/22/2023 Are you able to get enough f ood for your family? (Household - for ages 0-17 years) Not on file 12/22/2023 Does your family need food t his week? (Household - for ages 0-17 years) Not on file 12/22/2023 Do you always have enough fo od for your family? (Household - for ages 0-17 years) Not on file 12/22/2023 Comments No Sex and Gender Information Value [...] on file documented as of this encounter Last Filed Vital Signs Vital Sign Reading Time Taken Comments Blood Pressure 128/62 08/14/2024 2:03 PM EST Pulse 73 08/14/2024 2:03 PM EST Temperature - - Respiratory Rate - - Oxygen Saturation 96% 08/14/2024 2:03 PM EST Inhaled Oxygen Concentration - - Weight - - Height - - Body Mass Index - - documented in this encounter Functional Status * Are you [...] of Assessment Author No 06/04/2022 11:05 PM Radha Estes RN documented as of this encounter Mental Status * Because of a physical, mental, or emotional condition, do you have serious difficulty concentrating, remembering, or making decisions? (5 years old or older) Answer Entry Date Author No 06/04/2022 11:05 PM LORRAINET Radha Nunez RN documented in this encounter Progress Notes * Simran Castano PA-C - 08/14/2024 7:55 AM EST Images from the original note were not included. [facility] Problem Oriented Charting Provider Visit Date: 08/14/2024 Time: 7:55 AM Assessment and Plan #1 Atherosclerosis of [place] coronary artery of [place] heart without angina pectoris (Primary) Assessment & Plan: Atorvastatin 40mg daily Followed by cardiology #2 Hypertensive heart and kidney disease with chronic diastolic congestive heart failure and stage 3b chronic kidney disease ([facility]) Assessment & Plan: HF - Torsemide 100mg daily, Potassium 20mEq BID. Weighs daily and keeps a log. #3 COPD, group D, by GOLD 2017 classification ([facility]) Overview: Per COPD GOLD Classification Assessment & Plan: Trelegy 1 puff daily, Singulair 10mg daily, Albuterol HFA prn, Duonebs TID, Albuterol nebs prn Smoking cessation discussed. Pt actively trying to quit. #4 MARCELL (obstructive sleep apnea) Assessment & Plan: Has bipap #5 Dyslipidemia, goal LDL below 100 Assessment & Plan: Atorvastatin 40mg daily #6 Type 2 diabetes mellitus with stage 3b chronic kidney disease, with long-term current use of insulin ([facility]) Assessment & Plan: [facility] Recommended pt call other local pharmacies and have prescription transferred to a pharmacy that has Trulicity in stock. Last A1C was 8.1 on 08/02/24 Novolog flex pen Lantus insulin Has Geoffrey #7 Type 2 diabetes mellitus with hyperglycemia, with long-term current use of insulin ([facility]) Assessment & Plan: Has not had any BSGs > 250mg/dl since being discharged from the hospital. [facility] Recommended pt call other local pharmacies and have prescription transferred to a pharmacy that has Trulicity in stock. Last A1C was 8.1 on 08/02/24 Novolog flex pen Lantus insulin Has Geoffrey #8 Gastroesophageal reflux disease without esophagitis Assessment & Plan: Omeprazole 40mg daily #9 Degeneration of intervertebral disc of lumbar region, unspecified whether pain present Assessment & Plan: Tramadol 50mg Q8hrs prn Tylenol ER 650 Q8H prn Baclofen 10mg TID prn Gabapentin 300mg TID #10 Ambulatory dysfunction Assessment & Plan: Uses walker Other orders - Gabapentin; Take 2 Capsules by mouth in the morning and 2 Capsules at noon and 2 Capsules before bedtime. Additional Medical Decision Making: No changes made. Encouraged smoking cessation. Pt is aware to call [facility] with any questions or concerns. Continue with daily weights and notify [facility] if weight increases by 2lbs in one day or 5lbs in one week. Encouraged pt to check other pharmacies for Trulicity prescription if [facility] still does not have this in stock. Scheduled appointments in the next 60 days: Future Appointments-next 60 days Date/Time Provider Specialty Dept Phone 08/14/2024 2:30 PM Simran Castano PA-C [facility] [phone] 08/22/2024 12:30 PM Rosa Gomez RN [facility] [phone] 01/10/2025 2:00 PM (Arrive by 1:45 PM) Aramis Alvarado, [facility] [phone] A total of 45 minutes was spent face to face (via video-based telemedicine if designated as a telemedicine visit) Subjective Subjective Is this a Telemedicine Visit? No, this is an Home Visit. Reason For [facility] Visit: Enrollment Current Concerns: Dorys Sanford is a 63 year old female seen today for a [facility] provider visit. Pt well known to [facility] from previous [facility] admissions. Pt states that she saw PCP and PCP placed her on prednisone and azithromycin for possible pneumonia. Her BSG went up to over 600 and she was having headaches and confusion. She went to the ED and was stabilized and sent home. CXR was completed and did not show any consolidations. Pt states that BSGs have good since then. She denies SOB since being home. Her BONILLA is at baseline. She has started smoking again. She smokes 4-5 cigarettes per day. She is trying to quit by the end of the month. She has HF. She has not had any lower extremity edema or abdominal bloating. Pt was 271.3lbs this am which is where she has been averaging. She has CAD, has not had any recent chest discomfort. She continues to take Tramadol, Tylenol and Mobic for back pain from DDD lumbar spine. She uses a walker when she goes out of the home and will be walking longer distances. Today's concerns are: Atherosclerosis of [place] coronary artery of [place] heart without angina pectoris, benign hypertension with stage 3b chronic kidney disease, chronic heart failure with preservedejection fraction (HFpEF) , hypertensive heart and kidney disease with chronic diastolic congestiveheart failure and stage 3b chronic kidney disease, COPD, group D, by GOLD 2017 classification, MARCELL (obstructive sleep apnea), dyslipidemia, goal LDL below 100, secondary diabetes mellitus with HHNC (hyperglycemia hyperosmolar non-ketotic coma), type 2 diabetes mellitus with stage 3b chronic kidney disease, with long- term current use of insulin, type 2 diabetes mellitus with hyperglycemia, with long-term current use of insulin, gastroesophageal reflux disease without esophagitis, degeneration ofintervertebral disc of lumbar region, unspecified whether pain present, ambulatory dysfunction Additional Review of Systems Respiratory: Positive for cough and wheezing ("mostly at night"). Gastrointestinal: Positive for constipation and diarrhea. Musculoskeletal: Positive for arthralgias (left shoulder) and back pain. Psychiatric/Behavioral: Positive for dysphoric mood (on occasion). All other systems reviewed and are negative. I have reviewed the following results: Current Outpatient Medications Medication Sig Dispense Refill Acetaminophen ER 650 MG Oral Tablet Extended Release (Tylenol 8 Hour Arthritis Pain) Take 1 Tablet by mouth every 8 hours as needed. Albuterol Sulfate 2.5 MG/0.5ML Inhalation Nebulization Solution Inhale 0.5 mL via nebulizer every 4hours as needed for Wheezing. Albuterol Sulfate HFA 108 (90 Base) MCG/ACT Inhalation Aerosol Solution TAKE 2 PUFFS BY MOUTH 4 TIMES A DAY NEEDED FOR SHORTNESS OF BREATH OR WHEEZING. 54 g 1 Artificial Tears 0.1-0.3 % Ophthalmic Solution (Dextran 70-Hypromellose) Instill into eye. Atorvastatin Calcium 40 MG Oral Tablet (Lipitor) TAKE ONE TABLET BY MOUTH EVERY MORNING 90 Tablet 3 B-12 1000 MCG Oral Tablet Take 1 Tablet by mouth in the morning. Take 1 tab by mouth daily in the morning. 30 Tablet 3 Baclofen 10 MG Oral Tablet (Lioresal) Take 1 Tablet by mouth in the morning and 1 Tablet at noon and 1 Tablet before bedtime. buPROPion HCl ER (SR) 200 MG Oral Tablet Extended Release 12 Hour (Wellbutrin SR) Take 1 Tablet by mouth in the morning and 1 Tablet before bedtime. 180 Tablet 2 CPAP every night at bedtime. Apply prongs to nose daily at bedtime, settings 08/15 D3-1000 25 MCG (1000 UT) Oral Capsule (Cholecalciferol) Take 1 Capsule by mouth in the morning. 90 Capsule 1 Fenofibrate 145 MG Oral Tablet (Tricor) Take 1 Tablet by mouth in the morning. Rodos BioTarget Geoffrey 2 [place] Device USE TO Test 4 times daily 1 Each 0 FreeStyle Geoffrey 2 Sensor Use as directed. Replace sensor every 14 days 6 Each 2 Gabapentin 300 MG Oral Capsule (Neurontin) Take 2 Capsules by mouth in the morning and 2 Capsules at noon and 2 Capsules before bedtime. Global Ease Inject Pen [place] 31G X 5 MM (Insulin Pen Needle) Use up to four times daily as directed 400 Each 2 Insulin Glargine Solostar 100 UNIT/ML Subcutaneous Solution Pen-injector (Lantus SoloStar) Inject 55 Units under the skin daily. (Patient taking differently: Inject 50 Units under the skin daily.) 45mL 3 Ipratropium-Albuterol 0.5-2.5 (3) MG/3ML Inhalation Solution (Duoneb) Inhale 3 mL by mouth every 6 hours as needed. Meloxicam 15 MG Oral Tablet (Mobic) Take 1 Tablet by mouth in the morning. for pain.. 90 Tablet 2 Montelukast Sodium 10 MG Oral Tablet (Singulair) Take 1 Tablet by mouth in the morning. 90 Tablet 1 Multiple Vitamin (MULTI-VITAMIN DAILY) Tablet Take 1 Tablet by mouth in the morning. Take 1 tab by mouth daily. Nebulizer Device Use as directed. NovoLOG FlexPen 100 UNIT/ML Subcutaneous Solution Pen-injector (insulin aspart) Inject 20 Units under the skin in the morning and 20 Units at noon and 20 Units in the evening. Inject before meals. - Subcutaneous - please DC VIALs - call patient when ready (Patient taking differently: Inject 20 Units under the skin in the morning and 20 Units at noon and 25 Units in the evening. Inject before meals. - Subcutaneous Evening dose increased to 25 units on 08/04/2024) 60 Each 3 Omeprazole 40 MG Oral Capsule Delayed Release (PriLOSEC) Take 1 Capsule by mouth in the morning. 1 hour before the first meal of the day. 90 Capsule 2 OneTouch Ultra In Vitro Strip (Glucose Blood) TEST 3 TIMES A DAY. E11.9 300 Strip 3 OneTouch UltraSoft Lancets TEST 3 TIMES A DAY. E11.9 100 Each 3 Potassium Chloride Carmen ER 20 MEQ Oral Tablet Extended Release (Klor-Con M20) Take 1 Tablet by mouth in the morning and 1 Tablet before bedtime. 180 Tablet 0 Prochlorperazine Maleate 10 MG Oral Tablet (Compazine) Take 1 Tablet by mouth every 6 hours as needed for Nausea. (Patient not taking: Reported on 08/07/2024) 10 Tablet 0 Sertraline HCl 50 MG Oral Tablet (Zoloft) Take 1 Tablet by mouth in the morning. 30 Tablet 5 Systane Complete 0.6 % Ophthalmic Solution (Propylene Glycol) Instill 1 Drop into eye 4 times a dayas needed for Dry eyes. 10 mL 12 Torsemide 100 MG Oral Tablet (Demadex) TAKE BY MOUTH 1 TABLET IN THE MORNING AND 1 TABLET BEFORE BEDTIME. 180 Tablet 1 traMADol HCl 50 MG Oral Tablet (Ultram) Take 1 Tablet by mouth every 8 hours as needed for Pain, Moderate. Trelegy Ellipta 100-62.5-25 MCG/ACT Aerosol Powder Breath Activated (Fawiookjiin-Gzkhiwfairxh-Zrxfelzgur) Inhale 1 Puff by mouth in the morning. (Patient taking differently: Inhale 1 Puff by mouth once.) 60 Blister Dosing Unit 11 Trulicity 4.5 MG/0.5ML Subcutaneous Solution Pen-injector (Dulaglutide) Inject 4.5 mg under the skin once a week. Wednesday's (Patient taking differently: Inject 1.5 mg under the skin once a week. Wednesday's Changed to 1.5 mg at PCP visit on 08/04) 6 mL 3 No current facility-administered medications for this visit. Objective Objective Vitals: 08/14/24 1403 Pulse: 73 SpO2: 96% BP: 128/62 Last Weights: Wt Readings from Last 3 Encounters: 03/05/24 (!) 139.2 kg (306 lb 14.1 oz) 12/30/23 125.2 kg (276 lb) 09/15/23 132 kg (291 lb) Last BPs: BP Readings from Last 4 Encounters: 08/14/24 128/62 08/07/24 113/99 03/05/24 153/69 10/05/23 138/70 Physical Exam Constitutional: General: She is not in acute distress. Appearance: Normal appearance. She is obese. She is not ill-appearing, toxic- appearing or diaphoretic. HENT: Head: Normocephalic and atraumatic. Right Ear: External ear normal. Left Ear: External ear normal. Nose: Nose normal. Mouth/Throat: Mouth: Mucous membranes are moist. Eyes: General: No scleral icterus. Right eye: No discharge. Left eye: No discharge. Extraocular Movements: Extraocular movements intact. Conjunctiva/sclera: Conjunctivae normal. Cardiovascular: Rate and Rhythm: Normal rate and regular rhythm. Pulses: Normal pulses. Heart sounds: Normal heart sounds. No murmur heard. No friction rub. No gallop. Pulmonary: Effort: Pulmonary effort is normal. No respiratory distress. Breath sounds: No stridor. Wheezing (bilateral apices) present. No rhonchi or rales. Chest: Chest wall: No tenderness. Abdominal: General: Abdomen is flat. Bowel sounds are normal. There is no distension. Palpations: Abdomen is soft. There is no mass. Tenderness: There is no abdominal tenderness. There is no right CVA tenderness, left CVA tendernessor guarding. Musculoskeletal: General: No swelling, tenderness, deformity or signs of injury. Normal range of motion. Cervical back: Neck supple. Right lower leg: No edema. Left lower leg: No edema. Skin: General: Skin is warm and dry. Capillary Refill: Capillary refill takes less than 2 seconds. Coloration: Skin is not jaundiced or pale. Findings: No bruising, erythema, lesion or rash. Neurological: Mental Status: She is alert and oriented to person, place, and time. Cranial Nerves: No cranial nerve deficit. Sensory: No sensory deficit. Motor: No weakness. Coordination: Coordination normal. Gait: Gait normal. Deep Tendon Reflexes: Reflexes normal. Psychiatric: Mood and Affect: Mood normal. Behavior: Behavior normal. Thought Content: Thought content normal. Judgment: Judgment normal. Simran Castano PA-C 7:55 AM documented in this encounter Miscellaneous Notes * ACP (Advance Care Planning) - Simran Castano PA-C - 08/21/2024 7:34 AM EST Images from the original note were not included. Patient-centered Communication 08/21/2024 The patient/surrogate voluntarily agreed to participate in advance care planning discussion. They were advised that this is a separate service which may incur out of pocket cost in the form of copayment and/or deductibles. Location: Home Individual(s) present for conversation: Patient Decisions Additional Comments Discerning What Matters Most to the Patient: Source: Content from Respecting Choices Program Aligning Care With What Matters Most: No data to display Rationale for Decisions Source: Content from Respecting Choices Program 10 minutes spent in direct [id number] discussion today, Simran Castano PA-C * Assessment & Plan Note - Simran Castano PA-C - 08/21/2024 7:31 AM ESTAssociated Problem(s): Ambulatory dysfunction Uses walker * Assessment & Plan Note - Simran Castano PA-C - 08/21/2024 7:31 AM ESTAssociated Problem(s): DDD (degenerative disc disease), lumbar Tramadol 50mg Q8hrs prn Tylenol ER 650 Q8H prn Baclofen 10mg TID prn Gabapentin 300mg TID * Assessment & Plan Note - Simran Castano PA-C - 08/21/2024 7:25 AM ESTAssociated Problem(s): Gastroesophageal reflux disease without esophagitis Omeprazole 40mg daily * Assessment & Plan Note - Simran Castano PA-C - 08/16/2024 8:10 AM ESTAssociated Problem(s): Type 2 diabetes mellitus with hyperglycemia (HCC) Has not had any BSGs > 250mg/dl since being discharged from the hospital. [facility] is out of NoiseFree. Recommended pt call other local pharmacies and have prescription transferred to a pharmacy that has NoiseFree in stock. Last A1C was 8.1 on 08/02/24 Novolog flex pen Lantus insulin Has Geoffrey * Assessment & Plan Note - Simran Castano PA-C - 08/16/2024 8:07 AM ESTAssociated Problem(s): Type 2 diabetes mellitus with stage 3b chronic kidney disease, with long-term current use of insulin ([facility]) [facility] Pharmacy is out of NoiseFree. Recommended pt call other local pharmacies and have prescription transferred to a pharmacy that has NoiseFree in stock. Last A1C was 8.1 on 08/02/24 Novolog flex pen Lantus insulin Has Geoffrey * Assessment & Plan Note - Simran Castano PA-C - 08/16/2024 8:02 AM ESTAssociated Problem(s): Dyslipidemia, goal LDL below 100 Atorvastatin 40mg daily * Assessment & Plan Note - Simran Castano PA-C - 08/16/2024 7:56 AM ESTAssociated Problem(s): MARCELL (obstructive sleep apnea) Has bipap * Assessment & Plan Note - Simran Castano PA-C - 08/16/2024 7:56 AM ESTAssociated Problem(s): COPD, group D, by GOLD 2017 classification ([facility]) Trelegy 1 puff daily, Singulair 10mg daily, Albuterol HFA prn, Duonebs TID, Albuterol nebs prn Smoking cessation discussed. Pt actively trying to quit. * Assessment & Plan Note - Simran Castano PA-C - 08/16/2024 7:54 AM ESTAssociated Problem(s): Hypertensive heart and kidney disease with chronic diastolic congestive heart failure and stage 3b chronic kidney disease (HCC) HF - Torsemide 100mg daily, Potassium 20mEq BID. Weighs daily and keeps a log. * Assessment & Plan Note - Simran Castano PA-C - 08/16/2024 7:52 AM ESTAssociated Problem(s): Atherosclerosis of [place] coronary artery without angina pectoris Atorvastatin 40mg daily Followed by cardiology documented in this encounter Plan of Treatment Upcoming Encounters Date Type Department Care Team (Late st Contact Info) Description 08/22/2024 12:30 PM EST Home Visit [facility] [address] [place] [address] Rosa Gomez, EB [address] [place] [address] 01/10/2025 2:00 PM EDT Office Visit Optometry, [facility] [address] [place] [address] Aramis Alvarado OD [address] [place] [address] Health Maintenance Due Date Last Done Comments HPV/Co-Test 12/11/1991 Cologuard 2006 Colonoscopy 2006 Colorectal Cancer Screening 2006 Fecal Occult Blood Test 2006 Sigmoidoscopy 2006 Cervical Cancer Screening 11/25/2019 Pap Smear 11/25/2019 11/24/2016 (Refu sed), 10/19/2002 COVID-19 Vaccine (3 - Pfizer risk series) 12/25/2020 11/27/2020, 11/01/2020 Mammogram 12/05/2023 12/04/2022, 07/30, 10/24/2002 CKD PHOS USE SMARTSET 90057 02/20/202401/29, 08/27/2021, 08/10/2021, Additional history exists Albumin/Creatinine Ratio 03/01/2024 023, 05/08/2022, 08/15/2019, Additional history exists Diabetic Foot Exam 07/14/2024 07/14/2023, 1 09/13/2022, 06/15/2022, Additional history exists Diabetic Eye Exam 12/16/2024 12/17/2023, , 12/17/2023, Additional history exists Depression Monitoring 12/21/2024 12/22/2023 HbA1c 01/31/2025 08/02/2024, 05/0 04/2024, 09/15/2023, Additional history exists GFR 02/05/2025 08/07/2024, 1211/2023, 03/05/2024, Additional history exists CKD HGB USE SMARTSET 77497 08/07/202508/07, 08/07/2024, 08/02/2024, Additional history exists O2 ASSESSMENT COMPLETED IN PAST YEAR FOR COPD 08/14/2025 08/14/2024 Pneumococcal Vaccine: Pediatrics (0 to 5 Years) and At-Risk Patients (6 to 64 Years) (3 of 3 - PCV20 or PCV21) [...] this encounter Medical Devices Implanted Type Area Doll Surgeon Device Identifier Shelf Expiration Date Model / Serial / Lot Vivienne 16 X 20 Firm [id number] ( 320 Units ) - [id number] Implanted:Qty : 320 on 10/15/2015 by Rowan Borges MD at [facility] [place] Tissue - Non Human N/A: Abdomen LIFE CELL KIRA 05/29/2016 [id number] / / [id number] documented as of this encounter Visit Diagnoses Diagnosis Atherosclerosis of [place] coronary artery of [place] heart without angina pectoris- Primary Hypertensive heart and kidney disease with chronic diastolic congestive heart failure and stage 3b chronic kidney disease (HCC) COPD, group D, by GOLD 2017 classification ([facility]) MARCELL (obstructive sleep apnea) Obstructive sleep apnea (adult) (pediatric) Dyslipidemia, goal LDL below 100 Other and unspecified hyperlipidemia Type 2 diabetes mellitus with stage 3b chronic kidney disease, with long-term current use of insulin (HCC) Type 2 diabetes mellitus with hyperglycemia, with long-term current use of insulin ([facility]) Gastroesophageal reflux disease without esophagitis Esophageal reflux Degeneration of intervertebral disc of lumbar region, unspecified whether pain present Ambulatory dysfunction documented in this encounter Advance Directives Documents on File Type Date Recorded Patient Lcac Operator Expl anation POLST 04/17/2019 2:05 PM POLST [...] the patient have Health Care Power of Educational Recruiter? No * Full Code Date Activated Date Inactivated Comments 06/04/2022 10:50 PM 06/04/2022 11:13 PM This order reflects the patients wishes and were consensually agreed upon. Question Answer Comments Discussion of Advance Direct heriberto occurred with: Not Discussed due to patient's condition Does the patient have a Living Will? No Does the patient have Health Care Power of Educational Recruiter? No * Full Code Date Activated Date [...] Power of Attor terese? No Care Teams Photographic Process Attendant Relationship Specialty Start Date End Date Gerri Olsen DO PCP - General Family Medicine 12/17/23 documented as of this encounter
--- OUTSIDE RECORDS SUMMARY | 2024-09-01 12:01 | External Medical Summary | Summary of Care ---
Author Name Unknown Organization [facility] Address [address] [place] [address] Phone [phone] Care Team Providers Care Sole Leather Cutting Machine Operator Name Role Phone Gerri Olsen DO Primary Care Provider Reason for Visit * Reason Onset Date Comments Home Monitoring Orders Only 08/18/2024 Encounter Details Date Type Department Care Team ([facility] st Contact Info) Description 08/18/2024 Home Monitoring [facility], [facility] [address] [facility] [place] [address] Loob Leone DO [address] [place] [address] COPD, group D, by GOLD 2017 classification ([facility])* Allergies Active Allergy Reactions Criticality Noted Date Comments Moxifloxacin Hcl In Nacl Edema airway,Nausea/vomiti ng High 02/20/2010 Birds Wheezing 11/24/2016 Cephalosporins Hives 04/04/2018 Doxycycline Hyclate Nausea/vomiting 04/04/2018 Cephalexin Other (Please comment) 07/07/2018 Mouth was raw Ranitidine Rash 04/04/2018 Semaglutide 05/03/2024 Sulfa Antibiotics Anaphylaxis High 03/19/2018 Difficulty breathing Tetracycline 12/22/2023 Other Reaction(s): blisters on tongue documented as of this encounter (statuses as of 08/18/2024) Medications Multiple Vitamin (MULTI-VITAMIN DAILY) Tablet Take 1 Tablet by mouth in the morning. Take 1 tab by mouth daily. Activ e CPAP every night at bedtime. Apply prongs to nose daily at bedtime, settings 08/15 Active Artificial Tears 0.1-0.3 % Ophthalmic Solution (Dextran 70-Hypromellose) Instill into eye. Active Global Ease Inject Pen [place] 31G X 5 MM (Insulin Pen Needle)Indication s:Type 2 diabetes mellitus with hemoglobin A1c goal of less than 7.0% ([facility]) Use up to four times daily as directed 400 Each 2 022 Active Albuterol Sulfate 2.5 MG/0.5ML Inhalation Nebulization Solution Inhale 0.5 mL via nebulizer every 4 hours as needed for Wheezing. Active Nebulizer Device Use as directed. Active OneTouch Ultra In Vitro Strip (Glucose Blood)Indications :Type 2 diabetes mellitus with hemoglobin A1c goal of less than 7.0% ([facility]) TEST 3 TIMES A DAY. E11.9 300 Strip 3 023 Active Cashflowtuna.comTouch UltraSoft LancetsIndication s:Type 2 diabetes mellitus with hemoglobin A1c goal of less than 7.0% ([facility]) TEST 3 TIMES A DAY. E11.9 100 Each 3 023 Active Albuterol Sulfate HFA 108 (90 Base) MCG/ACT Inhalation Aerosol SolutionIndicatio ns:COPD, group C, by GOLD 2017 classification ([facility]) TAKE 2 PUFFS BY MOUTH 4 TIMES [...] the morning. 60 Blister Dosing Unit 11 Active Additional Information Patient taking differently:1 Puff InhalationONCE, Reported on 08/07/2024 Sertraline HCl 50 MG Oral Tablet (Zoloft) Take 1 Tablet by mouth in the morning. 30 Tablet 5 Active FreeStyle Geoffrey 2 Smithers DeviceIndications :Type 2 diabetes mellitus with hemoglobin A1c goal of less than 7.0% ([facility]) USE TO Test 4 times daily 1 Each Active Insulin Glargine Solostar 100 UNIT/ML Subcutaneous Solution Pen-injector (Lantus SoloStar)Indicati ons:Type 2 diabetes mellitus with hemoglobin A1c goal of less than 7.0% ([facility]) Inject 55 Units under the skin daily. 45 mL 3 Active Additional Information Patient taking differently: 50 UnitsSubcutaneous Daily(Non-Specified), Reported on 08/07/2024 FreeStyle Geoffrey 2 SensorIndications :Type 2 diabetes mellitus with hemoglobin A1c goal of less than 7.0% ([facility]) Use as directed. Replace sensor every 14 days 6 Each 2 Active NovoLOG FlexPen 100 UNIT/ML Subcutaneous Solution Pen-injector (insulin aspart) Inject 20 Units under the skin in the morning and 20 Units at noon and 20 Units in the evening. Inject before meals. - Subcutaneous - please DC VIALs - call patient when ready 60 Each 3 Active Additional Information Patient taking differently: Inject [...] morning. for pain.. 90 Tablet 2 Active B-12 1000 MCG Oral Tablet Take 1 Tablet by mouth in the morning. Take 1 tab by mouth daily in the morning. 30 Tablet 3 Active D3-1000 25 MCG (1000 UT) Oral Capsule (Cholecalciferol) Take 1 Capsule by mouth in the morning. 90 Capsule 1 Active Trulicity 4.5 MG/0.5ML Subcutaneous Solution Pen-injector (Dulaglutide) Inject 4.5 mg under the skin once a week. Wednesday's 6 mL 3 Active Additional Information Patient taking differently: 1.5 mgSubcutaneous QWEEK, Wednesday'sChanged to 1.5 mg at PCP visit on 08/04, Reported on 08/10/2024 Atorvastatin Calcium 40 MG Oral Tablet (Lipitor)Indicati ons:Chronic diastolic congestive heart failure (HCC) TAKE ONE TABLET BY MOUTH EVERY MORNING 90 Tablet 3 Active Potassium Chloride Carmen ER 20 MEQ [...] at noon and 2 Capsules before bedtime. Active documented as of this encounter (statuses as of 08/18/2024) Active Problems Problem Noted Date Diagnosed Date DDD (degenerative disc disease), lumbar 09/15/19 Chronic kidney disease, stage 3b 02/08/2023 Overview: [...] 250mg/dl since being discharged from the hospital. [facility] is out of KillerStartups. Recommended pt call other local pharmacies and have prescription transferred to a pharmacy that has KillerStartups in stock. Last A1C was 8.1 on [...] MD 06/24/2023 Polyneuropathy, unspecified 09/02/2021 Atherosclerosis of tetlin co ronary artery without angina pectoris 09/02/2021 [...] Gastroesophageal reflux disease without esophagi tis 10/17/2020 Ambulatory dysfunction 09/20/2020 Fall at home 09/20/2020 Hyponatremia 09/19/2020 Transaminitis 12/25/2019 Morbid obesity 09/12/2019 Hypertensive heart and kidne y disease with chronic diastolic congestive heart failure and stage 3b chronic kidney disease 04/11/2019 Assessment & Plan (08/16/2024 7:54 AM EST): HF - Torsemide 100mg daily Type 2 diabetes mellitus wit h stage 3b chronic kidney disease, with long-term current use of insulin 04/11/2019 Assessment & Plan (08/16/2024 8:09 AM EST): [facility] is out of KillerStartups. Recommended pt call other local pharmacies and have prescription transferred to a pharmacy that has KillerStartups in stock. Last A1C was 8.1 on [...] 7:56 AM EST): Has bipap COUGHLIN RESEARCH OTHER*[id number] 04/08/2010 HTN, goal below 140/90 03/24/2010 Mood disorder 03/24/2010 Overview (06/22/2017): ICD-10 update of inactive term Chronic bronchitis 03/24/2010 Tobacco use disorder 12/06/2009 Cervical radiculopathy at C5 Chronic midline low back pain with sciatica Dyslipidemia, goal LDL below 100 Assessment & Plan (08/16/2024 8:02 AM EST): Atorvastatin 40mg daily documented as of this encounter (statuses as of 08/18/2024) Resolved Problems Problem Noted Date Diagnosed Date [...] of abdominal wall with infection 01/24/2012 03/12/2019 DRS Study Research*[id number] 12/12/2010 02/16/2011 Adult body mass index 60.0-69.9 12/03/2010 08/12/2018 Overview: Per Obesity protocol #1 Body mass index (BMI) of 40.0-44.9 in adult 06/13/2010 12/03/2010 Overview (2015): ICD-10 update of inactive term [place] Research*[id number] 05/12/2010 10/18/2018 Overview (11/10/2015): Effect of Bariatric [...] as of this encounter (statuses as of 08/18/2024) Immunizations Name Administration Dates Next Due COVID-19 mRNA, LNP-s, No Pre serve, 2-Dose Series ([employer]) 11/27/2020,11/01/2020 Hepatitis B, 20+ yrs 02/07/2020,08/21/2019,07/12 Pneumococcal [...] Author No 06/04/2022 11:05 PM EDT Radha Nuenz RN * Do you have serious difficulty [...] documented in this encounter Progress Notes * Irma Beck OSA - 08/18/2024 2:39 PM EST Patient has been discharged from the [place] [address] home monitoring program due to noncompliant. documented in this encounter Plan of Treatment Upcoming Encounters Date Type Department Care Team (Late st Contact Info) Description 08/22/2024 12:30 PM EST Home Visit [facility], [facility] [address] [place] [address] Rosa Gomez, RN [address] [place] [address] 01/10/2025 2:00 PM EDT Office Visit Optometry, [facility] [address] [place] [address] Aramis Alvarado, OD [address] [facility] [place] [address] Health Maintenance Due Date Last Done Comments HPV/Co-Test 12/11/1991 Cologuard 2006 Colonoscopy 2006 Colorectal Cancer Screening 2006 Fecal Occult Blood Test 2006 Sigmoidoscopy 2006 Cervical Cancer Screening 11/25/2019 Pap Smear 11/25/2019 11/24/2016 (Refu sed), 10/19/2002 COVID-19 Vaccine (3 - Pfizer risk series) 12/25/2020 11/27/2020, 11/01/2020 Mammogram 12/05/2023 12/04/2022, 07/30, 10/24/2002 CKD PHOS USE SMARTSET 88916 02/20/2024 06/10/2022, 08/27/2021, 08/10/2021, Additional history exists Albumin/Creatinine Ratio 03/01/2024 023, 05/08/2022, 08/15/2019, Additional history exists Diabetic Foot Exam 07/14/2024 07/14/2023, 1 09/13/2022, 06/15/2022, Additional history exists Diabetic Eye Exam 12/16/2024 12/17/2023, , 12/17/2023, Additional history exists Depression Monitoring 12/21/2024 12/22/2023 HbA1c 01/31/2025 08/02/2024, 04/2024, 09/15/2023, Additional history exists GFR 02/05/2025 08/07/2024, 11/2023, 03/05/2024, Additional history exists CKD HGB USE SMARTSET 54707 08/07/202508/07, 08/07/2024, 08/02/2024, Additional history exists O2 [...] this encounter Medical Devices Implanted Type Area Pearl Restorer Device Identifier Shelf Expiration Date Model / Serial / Lot [facility] 16 X 20 Firm [id number] ( 320 Units ) - [id number] Implanted:Qty : 320 on 10/15/2015 by Rowan Borges MD at OR [facility] Tissue - Non Human N/A: Abdomen LIFE CELL KIRA 05/29/2016 [id number] / / [id number] documented as of this encounter Visit Diagnoses Diagnosis Atherosclerosis of [place] coronary artery of tet[place] heart without angina pectoris- Primary Hypertensive heart and kidney disease with chronic diastolic congestive heart failure and stage 3b chronic kidney disease (HCC) COPD, group D, by GOLD 2017 classification (HCC) MARCELL (obstructive sleep apnea) Obstructive sleep apnea (adult) (pediatric) Dyslipidemia, goal LDL below 100 Other and unspecified hyperlipidemia Type 2 diabetes mellitus with stage 3b chronic kidney disease, with long-term current use of insulin (HCC) Type 2 diabetes mellitus with hyperglycemia, with long-term current use of insulin (HCC) Gastroesophageal reflux disease without esophagitis Esophageal reflux Degeneration of intervertebral disc of lumbar region, unspecified whether pain present Ambulatory dysfunction COPD, group D, by GOLD 2017 classification ([facility])- Primary documented in this encounter Advance Directives Documents on File Type Date Recorded Patient Email Designer Daisy anation POLST 04/17/2019 2:05 PM POLST * [...] the patient have Health Care Power of Senior Business Manager? No * Full Code Date Activated Date Inactivated Comments 06/04/2022 10:50 PM 06/04/2022 11:13 PM This order reflects the patients wishes and were consensually agreed upon. Question Answer Comments Discussion of Advance Direct heriberto occurred with: Not Discussed due to patient's condition Does the patient have a Living Will? No Does the patient have Health Care Power of Senior Business Manager? No * Full Code Date Activated Date [...] Power of Attor terese? No Care Teams Sole Leather Cutting Machine Operator Relationship Specialty Start Date End Date Gerri Olsen DO PCP - General Family Medicine 12/17/23 documented as of this encounter
--- OUTSIDE RECORDS SUMMARY | 2024-09-01 12:01 | External Medical Summary ---
Author Name Unknown Address Unknown Organization [facility] [address] [place] [address] Laboratory Report Ordering Provider Test Date Status DEE CARD 08/25/2024 12:24:00 Final Observation Date Value Abnormality Reference (Units ) Status Hemoglobin A1C 08/25/2024 15:57 8.3 Above high normal <5.7 (%) Final [place] [employer] Associatio n Guidelines: Decreased risk or non-diabetic: <5.7% Increased risk of diabetes: 5.7-6.4% Consistent with diabetes: >=6.5% General goal for treated diabetics: <7.0% Performing Location [facility] [address] [place] [address]
--- OUTSIDE RECORDS SUMMARY | 2024-09-01 12:01 | External Medical Summary | Summary of Care ---
Author Name Unknown Organization [facility] Address [address] [place] [address] Phone [phone] Care Team Providers Care Assistant Media Buyer Name Role Phone PrettyGerri Parish DIOP Primary Care Provider [phone] Encounter Details Date Type Department Care Team (Late st Contact Info) Description 08/22/2024 12:30 PM EST Home Visit [facility] [place] [address] [place] [address] Rosa Gomez, EB [address] [place] [address] Allergies Active Allergy Reactions Criticality Noted Date Comments Moxifloxacin Hcl In Nacl Edema airway,Nausea/vomiti ng High 02/20/2010 Birds Wheezing 11/24/2016 Cephalosporins Hives 04/04/2018 Doxycycline Hyclate Nausea/vomiting 04/04/2018 Cephalexin Other (Please comment) 07/07/2018 Mouth was raw Ranitidine Rash 04/04/2018 Semaglutide 05/03/2024 Sulfa Antibiotics Anaphylaxis High 03/19/2018 Difficulty breathing Tetracycline 12/22/2023 Other Reaction(s): blisters on tongue documented as of this encounter (statuses as of 08/22/2024) Medications CPAP every night at bedtime. Apply prongs to nose daily at bedtime, settings 08/15 Active Artificial Tears 0.1-0.3 % Ophthalmic Solution (Dextran 70-Hypromellose) Instill into eye. Active Global Ease Inject Pen Potter 31G X 5 MM (Insulin Pen Needle)Indicatio ns:Type 2 diabetes mellitus with hemoglobin A1c goal of less than 7.0% ([facility]) Use up to four times daily as directed 400 Each 2 2021 Active Albuterol Sulfate 2.5 MG/0.5ML Inhalation Nebulization Solution Inhale 0.5 mL via nebulizer every 4 hours as needed for Wheezing. Active Nebulizer Device Use as directed. Active OneTouch Ultra In Vitro Strip (Glucose Blood)Indication s:Type 2 diabetes mellitus with hemoglobin A1c goal of less than 7.0% ([facility]) TEST 3 TIMES A DAY. E11.9 300 Strip 3 2022 Active OneTouch UltraSoft LancetsIndicatio ns:Type 2 diabetes mellitus with hemoglobin A1c goal of less than 7.0% ([facility]) TEST 3 TIMES A DAY. E11.9 100 Each 3 2022 Active Albuterol Sulfate HFA 108 (90 Base) MCG/ACT Inhalation Aerosol SolutionIndicati ons:COPD, group C, by GOLD 2017 classification ([facility]) TAKE 2 PUFFS BY MOUTH 4 [...] the morning. 30 Tablet 5 2022 Active Insulin Glargine Solostar 100 UNIT/ML Subcutaneous Solution Pen-injector (Lantus SoloStar)Indicat ions:Type 2 diabetes mellitus with hemoglobin A1c goal of less than 7.0% ([facility]) Inject 55 Units under the skin daily. 45 mL 3 2022 Active NovoLOG FlexPen 100 UNIT/ML Subcutaneous Solution Pen-injector (insulin aspart) Inject 20 Units under the skin in the morning and 20 Units at noon and 20 Units in the evening. Inject before meals. - Subcutaneous - please DC VIALs - call patient when ready 60 Each 3 2022 Active Additional Information Patient taking differently: 25 [...] for pain.. 90 Tablet 2 2023 Active Trulicity 4.5 MG/0.5ML Subcutaneous Solution Pen-injector (Dulaglutide) Inject 4.5 mg under the skin once a week. Wednesday's 6 mL 3 2023 Active Additional Information Patient taking differently: 1.5 mgSubcutaneous QWEEK, Wednesday'sChanged to 1.5 mg at PCP visit on 08/04, Reported on 08/22/2024 Atorvastatin Calcium 40 MG Oral Tablet (Lipitor)Indicat [...] at noon and 800 mg before bedtime. 2023 Active Dexcom G7 Packaging Operator Device Use as directed. Active Dexcom G7 Sensor Use as directed every 10 days. Active oxyCODONE HCl 5 MG Oral Capsule (Oxy IR) Take 1 Capsule by mouth 2 times a day as needed for Pain, Severe. Active Multiple Vitamin (MULTI-VITAMIN DAILY) Tablet Take 1 Tablet by mouth in the morning. Take 1 tab by mouth daily. 08/22 Discontinued FreeStyle Geoffrey 2 [place] DeviceIndication s:Type 2 diabetes mellitus with hemoglobin A1c goal of less than 7.0% ([facility]) USE TO Test 4 times daily 1 Each 08/22 Discontinued FreeStyle Geoffrey 2 SensorIndication s:Type 2 diabetes mellitus with hemoglobin A1c goal of less than 7.0% ([facility]) Use as directed. Replace sensor every 14 days 6 Each 2 08/22 Discontinued B-12 1000 MCG Oral Tablet Take 1 Tablet by mouth in the morning. Take 1 tab by mouth daily in the morning. 30 Tablet 3 08/22 Discontinued D3-1000 25 MCG (1000 UT) Oral Capsule (Cholecalciferol ) Take 1 Capsule by mouth in the morning. 90 Capsule 1 08/22 Discontinued documented as of this encounter (statuses as of 08/22/2024) Active Problems Problem Noted Date Diagnosed Date [...] 250mg/dl since being discharged from the hospital. [facility] is out of [employer]. Recommended pt call other local pharmacies and have prescription transferred to a pharmacy that has [employer] in stock. Last A1C was 8.1 on [...] MD 06/24/2023 Polyneuropathy, unspecified 09/02/2021 Atherosclerosis of red devil co ronary artery without angina pectoris 09/02/2021 [...] Assessment & Plan (08/16/2024 8:09 AM EST): [facility] is out of [employer]. Recommended pt call other local pharmacies and have prescription transferred to a pharmacy that has [employer] in stock. Last A1C was 8.1 on [...] 7:56 AM EST): Has bipap [employer]GHLIN [employer]EARCH OTHER*[id number] 04/08/2010 HTN, goal below 140/90 03/24/2010 Mood disorder 03/24/2010 Overview (06/22/2017): ICD-10 update of inactive term Chronic bronchitis 03/24/2010 Tobacco use disorder 12/06/2009 Cervical radiculopathy at C5 Chronic midline low back pain with sciatica Dyslipidemia, goal LDL below 100 Assessment & Plan (08/16/2024 8:02 AM EST): Atorvastatin 40mg daily documented as of this encounter (statuses as of 08/22/2024) Resolved Problems Problem Noted Date Diagnosed Date [...] of recent fall 10/25/202009/02 Hyperparathyroidism 10/17/2020 09/02/19 Closed nondisplaced fracture of condyle of right [...] wall with infection 01/24/2012 03/12/2019 DRS Study Research*[id number] 12/12/2010 02/16/2011 Adult body mass index 60.0-69.9 12/03/2010 08/12/2018 Overview: Per Obesity protocol #1 Body mass index (BMI) of 40.0-44.9 in adult 06/13/2010 12/03/2010 Overview (2015): ICD-10 update of inactive term [employer]ie[employer] Research*[id number] 05/12/2010 10/18/2018 Overview (11/10/2015): Effect of Bariatric [...] as of this encounter (statuses as of 08/22/2024) Immunizations Name Administration Dates Next Due COVID-19 mRNA, LNP-s, No Pre serve, 2-Dose Series (Pfizer) 11/27/2020,11/01/2020 Hepatitis B, 20+ yrs 02/07/2020,08/21/2019,07/12 Pneumococcal [...] 08/22/2024 Does the household have a re lar source of income? (Household - for ages [...] Sign Reading Time Taken Comments Blood Pressure 128/76 08/22/2024 2:30 PM EST Pulse 79 08/22/2024 2:30 PM EST Temperature 36.3 C (97.3 F) 08/22/2024 2:30 PM ES T Respiratory Rate - - Oxygen Saturation 97% 08/22/2024 2:30 PM EST Room Air Inhaled Oxygen Concentration - - Weight - [...] No 06/04/2022 11:05 PM Radha Estes RN * Because of a physical, mental, [...] Entry Date Author No 06/04/2022 11:05 PM Radha Estes RN documented in this encounter Progress Notes * Rosa Gomez RN - 08/22/2024 1:14 PM EST Current Concerns: Dorys Sanford (Sue) is a 63 year old female being seen in her home for [facility] re- enrollment nurse visit. - she had just returned from volunteering at [employer]. - denies any acute concerns today -medications reviewed, has all in the home, fills a pill tray weekly, denies medication insecurities - PCP sent antibiotic in for left underlying pneumonia- called [facility] and at pharmacy, Abbi plans to go parts picker after our visit- she is aware they close at 3:00 pm. - patient drives herself to appointments - patient independent with care & ADL's - does her own grocery shopping and own cooking. Receives food stamps, denies food insecurities. Receives FFF every 2 weeks. - denies any recent falls- last fall over the summer - weight this morning was 271.2- has not been weighing daily- knows to call in for weight increasesof 2# in a day or 5# in a week and red flags. - patient has her own scale- states / [facility] does not work well in home - she is scheduled to have left total shoulder replacement on 09/01/24- she needs to pass stress testand lower Hgba1c - blood sugar at time of visit 153- dexcom intact to back of left arm - her sister Ninoska has been staying with her, plans to move in after she retires Last utilization: 08/07/24 hyperglycemia @ [facility] ED. Patient was prescribed prednisone by her PCP on Wednesday due to shortness of breath and wheezing. Patient is an insulin dependent diabetic and states she woke up today with a headache and blood sugarof 602. She states she added 2 units of her insulin but it only dropped it to high 500s. She calledher PCP who advised her to seek evaluation at the emergency department. Patient states her complaints are shortness of breath, wheezing, excessive thirst, headache, tired, and confusion. She denies chest pain, abdominal pain, nausea, vomiting, diarrhea. Patient's glucose at the moment is 242 and states it is because she has not eaten. Physical Exam: Physical Exam Constitutional: General: She is not in acute distress. Appearance: Normal appearance. She is obese. She is not ill-appearing, toxic- appearing or diaphoretic. HENT: Mouth/Throat: Mouth: Mucous membranes are moist. Eyes: General: No scleral icterus. Cardiovascular: Rate and Rhythm: Normal rate and regular rhythm. Pulses: Normal pulses. Heart sounds: Normal heart sounds. No gallop. Pulmonary: Effort: Pulmonary effort is normal. Breath sounds: Wheezing (RUL) present. Abdominal: General: Bowel sounds are normal. Palpations: Abdomen is soft. Musculoskeletal: General: Normal range of motion. Right lower leg: Edema (tight non pitting/pedal) present. Left lower leg: Edema (tight non pitting/pedal) present. Skin: General: Skin is warm and dry. Neurological: Mental Status: She is alert and oriented to person, place, and time. Psychiatric: Mood and Affect: Mood normal. Behavior: Behavior normal. Thought Content: Thought content normal. Judgment: Judgment normal. Review of Systems: Review of Systems Constitutional: Positive for fatigue. Negative for activity change, appetite change, chills, diaphoresis, fever and unexpected weight change. HENT: Positive for congestion (alittle), postnasal drip, rhinorrhea, sinus pressure and sinus pain.Negative for dental problem, ear discharge, ear pain, facial swelling, hearing loss, mouth sores, nosebleeds, sneezing, sore throat, tinnitus, trouble swallowing and voice change. Eyes: Positive for visual disturbance (wears glasses). Respiratory: Positive for cough (yellow sputum- states it is because of smoking) and shortness of breath (with exertion/activity). Negative for chest tightness and wheezing (at night time baseline). Cardiovascular: Negative. Negative for chest pain, palpitations and leg swelling. Gastrointestinal: Positive for constipation and diarrhea. Negative for abdominal distention, abdominal pain, anal bleeding, blood in stool, nausea, rectal pain and vomiting. Last BM: 08/21 Endocrine: Negative. Genitourinary: Negative. Negative for difficulty urinating. Musculoskeletal: Positive for arthralgias and back pain. Negative for gait problem, neck pain and neck stiffness. Skin: Negative. Negative for rash and wound. Allergic/Immunologic: Negative. Neurological: Positive for numbness (feet ) and headaches. Negative for dizziness, seizures, speechdifficulty, weakness and light-headedness. Hematological: Bruises/bleeds easily. Psychiatric/Behavioral: Positive for sleep disturbance. Negative for agitation, behavioral problems, confusion, decreased concentration, dysphoric mood, hallucinations, self-injury and suicidal ideas. The patient is nervous/anxious. The patient is not hyperactive. Admits to depression Care Plan Goal Progress: Patient will maintain management & treatment regimen. (Progressing) Start: 08/22/24 GS - Patient/caregiver will verbalize an understanding of diagnosis, treatment and self management of chronic obstructive pulmonary disease (COPD) (Progressing) Start: 08/22/24 GS - Patient/caregiver will verbalize strategies to cope with COPD and its symptoms. (Progressing) Start: 08/22/24 Orders Placed: No orders of the defined types were placed in this encounter. Medications Given: none Care Gaps: Care Gaps Care gaps closed this contact: Appointments;Education;Medications;Plan of Care (POC) (08/22/24 143) Type of education: Clinical/disease;Educated on the benefits of connecting with their PCP;COVID 19 (08/22/24 143) Type of plan of care (POC) care gap: Creation of exacerbation plan (developed exacerbation plan and3 red flags);Education and review of exacerbation plan (08/22/24 143) Provided SMAP, reviewed red flags & intake number to call with concerns Instructed to eat a healthy, well-balanced diet. Be cognizant of foods high in sugar and carbohydrates. Increase physical activity, take all medications as directed, monitor blood glucose twice a day. Check blood glucose once before breakfast (fasting) and once two hours after a meal (post-prandial), document and take readings to next PCP visit. Report consistently elevated or low readings. Goal is <130mg/dl fasting and <180mg/dl post-prandial. Target A1C is <7%. COPD: Pt instructed to: -Call with increased SOB, wheezing, chest tightness, increased cough, increased sputum with change in color or consistency and fever. -Wash hands often -Drink plenty of fluids -Use inhalers as directed, do not stop or skip doses -Avoid stress -Rest when tired or SOB -Avoid triggers -Clean inhalers once a week Reviewed HF symptom monitoring: -Weigh self daily in am, post-void and record -Do not add salt to food, avoid foods high in sodium -Limit fluids to 2 liters per day -Report the following: ->2 lb weight gain in one day or 5 lbs in a week to PCP -increased edema in feet, abdomen or hands -increased SOB and cough, especially if at night -increased fatigue or vertigo documented in this encounter Plan of Treatment Upcoming Encounters Date Type Department Care Team (Late st Contact Info) Description 09/05/2024 4:00 PM EST Home Visit [facility] [address] [place] [address] Rosa Gomez, RN [address] [facility] [place] [address] 01/10/2025 2:00 PM EDT Office Visit Optometry, [facility] [address] [place] [address] Aramis Alvarado OD [address] [facility] [place] [address] Health Maintenance Due Date Last Done Comments HPV/Co-Test 12/11/1991 Cologuard 2006 Colonoscopy 2006 Colorectal Cancer Screening 2006 Fecal Occult Blood Test 2006 Sigmoidoscopy 2006 Cervical Cancer Screening 11/25/2019 Pap Smear 11/25/2019 11/24/2016 (Refu sed), 10/19/2002 COVID-19 Vaccine (3 - Pfizer risk series) 12/25/2020 11/27/2020, 11/01/2020 Mammogram 12/05/2023 12/04/2022, 07/30, 10/24/2002 CKD PHOS USE SMARTSET [id number] 02/20/202401/29, 08/27/2021, 08/10/2021, Additional history exists Albumin/Creatinine Ratio 03/01/2024 023, 05/08/2022, 08/15/2019, Additional history exists Diabetic Foot Exam 07/14/2024 07/14/2023, 1 09/13/2022, 06/15/2022, Additional history exists Diabetic Eye Exam 12/16/2024 12/17/2023, , 12/17/2023, Additional history exists Depression Monitoring 12/21/2024 12/22/2023 HbA1c 01/31/2025 08/02/2024, 05/0 04/2024, 09/15/2023, Additional history exists GFR 02/05/2025 08/07/2024, 12/11/2023, 03/05/2024, Additional history exists CKD HGB USE SMARTSET [id number] 08/07/202508/07, 08/07/2024, 08/02/2024, Additional history exists O2 ASSESSMENT COMPLETED IN PAST YEAR FOR COPD 08/22/2025 08/22/2024 Pneumococcal Vaccine: Pediatrics (0 to 5 Years) [...] this encounter Medical Devices Implanted Type Area Tread Builder Device Identifier Shelf Expiration Date Model / Serial / Lot Strattice 16 X 20 Firm [id number] ( 320 Units ) - [id number] Implanted:Qty : 320 on 10/15/2015 by Rowan Borges [place] [facility] [place] - Non Human N/A: Abdomen [employer] KIRA 05/29/2016 [id number] / / [id number] documented as of this encounter Advance Directives Documents on File Type Date Recorded Patient Survey Director Expl anation POLST 04/17/2019 2:05 PM POLST [...] the patient have Health Care Power of Fleet Assistant? No * Full Code Date Activated Date Inactivated Comments 06/04/2022 10:50 PM 06/04/2022 11:13 PM This order reflects the patients wishes and were consensually agreed upon. Question Answer Comments Discussion of Advance Direct heriberto occurred with: Not Discussed due to patient's condition Does the patient have a Living Will? No Does the patient have Health Care Power of Fleet Assistant? No * Full Code Date Activated Date [...] Power of Attor terese? No Care Teams Assistant Media Buyer Relationship Specialty Start Date End Date Gerri Olsen DO PCP - General Family Medicine 12/17/23 documented as of this encounter
--- OUTSIDE RECORDS SUMMARY | 2024-09-01 12:02 | External Medical Summary | Summary of Care ---
Author Name Unknown Organization [facility] Address [address] [place] [address] Phone [phone] Care Team Providers Care Entry Level Mechanical Engineer Name Role Phone PrettyGerri viera Primary Care Provider Reason for Visit * Reason Onset Date Comments Appointment 08/10/2024 Encounter Details Date Type Department Care Team ([facility] st Contact Info) Description 08/10/2024 Telephone [facility], [place] [address] [place] [phone] Velasquez Lyman, MARCELL [address] [place] [address] Appointment (///) Allergies Active Allergy Reactions Criticality Noted Date Comments Moxifloxacin Hcl In Nacl Edema airway,Nausea/vomiti ng High 02/20/2010 Birds Wheezing 11/24/2016 Cephalosporins Hives 04/04/2018 Doxycycline Hyclate Nausea/vomiting 04/04/2018 Cephalexin Other (Please comment) 07/07/2018 Mouth was raw Ranitidine Rash 04/04/2018 Semaglutide 05/03/2024 Sulfa Antibiotics Anaphylaxis High 03/19/2018 Difficulty breathing Tetracycline 12/22/2023 Other Reaction(s): blisters on tongue documented as of this encounter (statuses as of 08/10/2024) Medications Multiple Vitamin (MULTI-VITAMIN DAILY) Tablet Take 1 Tablet by mouth in the morning. Take 1 tab by mouth daily. Activ e CPAP every night at bedtime. Apply prongs to nose daily at bedtime, settings 08/15 Active Artificial Tears 0.1-0.3 % Ophthalmic Solution (Dextran 70-Hypromellose) Instill into eye. Active Global Ease Inject Pen [place] 31G X 5 MM (Insulin Pen Needle)Indication [...] ns:COPD, group C, by GOLD 2017 classification ([facility]) TAKE 2 PUFFS BY MOUTH [...] 30 Tablet 5 Active FreeStyle Geoffrey 2 Luana DeviceIndications :Type 2 diabetes mellitus with hemoglobin A1c goal of less than 7.0% ([facility]) USE TO Test 4 times daily 1 Each Active Insulin Glargine Solostar 100 UNIT/ML Subcutaneous Solution Pen-injector (Lantus SoloStar)Indicati ons:Type 2 diabetes mellitus with hemoglobin A1c goal of less than 7.0% ([facility]) Inject 55 Units under the skin daily. 45 mL 3 Active Additional Information Patient taking differently: 50 UnitsSubcutaneous Daily(Non-Specified), Reported on 08/07/2024 FreeStyle Geoffrey 2 SensorIndications :Type 2 diabetes mellitus with hemoglobin A1c goal of less than 7.0% ([facility]) Use as directed. Replace sensor [...] and 1 Tablet before bedtime. Ac tive Gabapentin 300 MG Oral Capsule (Neurontin) Take 1 Capsule by mouth in the morning and 1 Capsule at noon and 1 Capsule before bedtime. Active metOLazone 2.5 MG Oral Tablet (Zaroxolyn) Take 1 Tablet by mouth in the morning. Active Acetaminophen ER 650 MG Oral Tablet Extended Release (Tylenol 8 Hour Arthritis Pain) Take 1 Tablet by mouth every 8 hours as needed. Active Systane Complete 0.6 % Ophthalmic Solution (Propylene Glycol) Instill 1 Drop into eye 4 times a day as needed for Dry eyes. 10 mL 12 Active Fexofenadine HCl 180 MG Oral Tablet (Chelsey) Take 1 Tablet by mouth. Active Ipratropium-Albut gregg 0.5-2.5 (3) MG/3ML Inhalation Solution (Duoneb) Inhale 3 mL by mouth every 6 hours as needed. Active Spironolactone 25 MG Oral Tablet (Aldactone) Take 1 Tablet by mouth in the morning. Active traMADol HCl 50 MG Oral Tablet (Ultram) Take 1 Tablet by mouth every 8 hours as needed for Pain, Moderate. Active Fenofibrate 145 MG Oral Tablet (Tricor) Take 1 Tablet by mouth in the morning. Active documented as of this encounter (statuses as of 08/10/2024) Active Problems Problem Noted Date Diagnosed Date DDD (degenerative disc disease), lumbar 09/15/19 Chronic kidney disease, stage 3b 02/08/2023 Overview: Per CKD protocol Benign hypertension with stage 3b chronic kidney disease 02/08/2023 Overview: Per CKD protocol Age-related nuclear cataract of both eyes 2022 Blurred vision, bilateral 06/25/2022 Impaired mobility and endurance 06/06/2022 Type 2 diabetes mellitus with hyperglycemia 01/2022 Chronic heart failure with p reserved ejection fraction (HFpEF) 06/04/2022 Asthma, moderate persistent 05/08/2022 COPD, group D, by GOLD 2017 classification 02/09 Overview: Per COPD GOLD Classification Controlled substance agreement terminated 2021 Overview (06/24/2023): CKD, CHF, EDY in place UDS showing none of prescribed med. Has MTDM visit 07/06/23 Amee Malone MD 06/24/2023 Polyneuropathy, unspecified 09/02/2021 Atherosclerosis of [place] ronary artery without angina pectoris 09/02/2021 Major depressive disorder with single episode History [...] and stage 3b chronic kidney disease 04/11/2019 Type 2 diabetes mellitus wit h stage 3b chronic kidney disease, with long-term current use of insulin 04/11/2019 Morbid obesity with BMI of 50.0-59.9, adult [...] syndrome 04/06/2018 MARCELL (obstructive sleep apnea) 04/08/2010 COUGHLIN RESEARCH OTHER*[id number] 04/08/2010 HTN, goal below 140/90 03/24/2010 Mood disorder 03/24/2010 Overview (06/22/2017): ICD-10 update of inactive term Chronic bronchitis 03/24/2010 Tobacco use disorder 12/06/2009 Cervical radiculopathy at C5 Chronic midline low back pain with sciatica Dyslipidemia, goal LDL below 100 documented as of this encounter (statuses as of 08/10/2024) Resolved Problems Problem Noted Date Diagnosed Date Resolved Date Hypokalemia 11/20/2022 09/15/2023 Accessory skin tags 11/20/2022 09/15/19 24 Acute non-recurrent frontal sinusitis 06/25/2022 07/14/2023 Stage 3b chronic kidney disease 06/05/2022 02/11/2023 Diarrhea 06/05/2022 06/07/2022 Hyponatremia 06/04/2022 06/07/2022 CHRIS (acute kidney injury) 06/04/2022 Asthma in remission 05/08/2022 05/08/20 22 Asthma, mild persistent 05/08/202206/30 Intermittent asthma with [...] of abdominal wall with infection 01/24/2012 03/12/2019 [facility] Study Research*[id number] 12/12/2010 02/16/2011 Adult body mass index 60.0-69.9 12/03/2010 08/12/2018 Overview: Per Obesity protocol #1 Body mass index (BMI) of 40.0-44.9 in adult 06/13/2010 12/03/2010 Overview (2015): ICD-10 update of inactive term [place] Research*[id number] 05/12/2010 10/18/2018 Overview (11/10/2015): Effect of Bariatric [...] as of this encounter (statuses as of 08/10/2024) Immunizations Name Administration Dates Next Due COVID-19 [...] 06/04/2022 11:05 PM LORRAINET Radha Nunez RN * Are you blind or do you have serious difficulty seeing, even when wearing glasses? Answer Date of Assessment Author No 06/04/2022 11:05 PM LORRAINET Radha Nunez RN * Do you have [...] Entry Date Author No 06/04/2022 11:05 PM EDT Radha Nunez RN documented in this encounter Miscellaneous Notes * Telephone Encounter - Velasquez Lyman OSA - 08/10/2024 3:41 PM EST Date Scheduled: 08/10 Time: 341pm In Person RNCM Special Instructions: enrollment appts scheduled documented in this encounter Plan of Treatment Upcoming Encounters Date Type Department Care Team (Late st Contact Info) Description 08/14/2024 2:30 PM EST Home Visit [facility] [place], [facility] [address] [place] [address] Simran Castano PA-C [address] [place] [address] 08/22/2024 12:30 PM EST Home Visit [facility] [place], [facility] [address] [place] [address] Rosa Gomez RN [address] [place] [address] 01/10/2025 2:00 PM EDT Office Visit Optometry, [facility] [address] [place] [address] Aramis Alvarado, [place] [address] [facility] [place] [address] Health Maintenance Due Date Last Done Comments HPV/Co-Test 12/11/1991 Cologuard 2006 Colonoscopy 2006 Colorectal Cancer Screening 2006 Fecal Occult Blood Test 2006 Sigmoidoscopy 2006 Cervical Cancer Screening 11/25/2019 Pap Smear 11/25/2019 11/24/2016 (Refu sed), 10/19/2002 COVID-19 Vaccine (3 - Pfizer risk series) 12/25/2020 11/27/2020, 11/01/2020 Mammogram 12/05/2023 12/04/2022, 07/30, 10/24/2002 CKD PHOS USE SMARTSET 41230 02/20/202401/29, 08/27/2021, 08/10/2021, Additional history exists Albumin/Creatinine Ratio 03/01/2024 023, 05/08/2022, 08/15/2019, Additional history exists Diabetic Foot Exam 07/14/2024 07/14/2023, 1 09/13/2022, 06/15/2022, Additional history exists Diabetic Eye Exam 12/16/2024 12/17/2023, , 12/17/2023, Additional history exists Depression Monitoring 12/21/2024 12/22/2023 HbA1c 01/31/2025 08/02/2024, 05/0 04/2024, 09/15/2023, Additional history exists GFR 02/05/2025 08/07/2024, 12/0 11/2023, 03/05/2024, Additional history exists CKD HGB USE SMARTSET 82426 08/07/202508/07, 08/07/2024, 08/02/2024, Additional history exists O2 ASSESSMENT COMPLETED IN PAST YEAR FOR COPD 08/07/2025 08/07/2024 Pneumococcal Vaccine: Pediatrics (0 to 5 Years) and At-Risk Patients (6 to 64 Years) (3 of 3 - PPSV23 or PCV20) 2026 09/04/2020, 05/11/2019 DTap/Tdap Vaccines (2 - Td [...] this encounter Medical Devices Implanted Type Area Planimeter Operator Device Identifier Shelf Expiration Date Model / Serial / Lot Vivienne 16 X 20 Firm [id number] ( 320 Units ) - [id number] Implanted:Qty : 320 on 10/15/2015 by Rowan Borges MD at [place] [facility] [place] - Non Human N/A: Abdomen LIFE CELL KIRA 05/29/2016 [id number] / / [id number] documented as of this encounter Advance Directives Documents on File Type Date Recorded Patient Collections Analyst Expl anation POLST 04/17/2019 2:05 PM POLST [...] the patient have Health Care Power of Aerophysics Engineer? No * Full Code Date Activated Date Inactivated Comments 06/04/2022 10:50 PM 06/04/2022 11:13 PM This order reflects the patients wishes and were consensually agreed upon. Question Answer Comments Discussion of Advance Direct heriberto occurred with: Not Discussed due to patient's condition Does the patient have a Living Will? No Does the patient have Health Care Power of Aerophysics Engineer? No * Full Code Date Activated Date [...] Power of Attor terese? No Care Teams Entry Level Mechanical Engineer Relationship Specialty Start Date End Date Gerri Olsen DO [address] [place] [id number] PCP - General Family Medicine 12/17/23 documented as of this encounter
--- OUTSIDE RECORDS SUMMARY | 2024-09-01 12:02 | External Medical Summary | Summary of Care ---
Author Name Unknown Organization [facility] Address [address] [place] [address] Phone [phone] Care Team Providers Care Fiber Optics Engineer Name Role Phone PrettyGerri viera [place] DIOP Primary Care Provider Reason for Visit * Reason Onset Date Comments [facility]: Screening 08/10/2024 Encounter Details Date Type Department Care Team ([facility] st Contact Info) Description 08/10/2024 Telephone [facility], [facility] [address] [place] [address] Irma Lopez, JAIR [address] [place] [address] [facility]: Screening Allergies Active Allergy Reactions Criticality Noted Date [...] into eye. Active Global Ease Inject Pen [place] 31G X 5 MM (Insulin Pen Needle)Indication s:Type 2 diabetes mellitus with hemoglobin A1c goal of less than 7.0% ([facility]) Use up to four times daily as [...] hemoglobin A1c goal of less than 7.0% ([facility]) TEST 3 TIMES A DAY. E11.9 100 Each 3 023 Active Albuterol Sulfate HFA 108 (90 Base) MCG/ACT Inhalation Aerosol SolutionIndicatio ns:COPD, group C, by GOLD 2017 classification ([facility]) TAKE 2 PUFFS BY MOUTH 4 TIMES [...] 30 Tablet 5 Active FreeStyle Geoffrey 2 Aston DeviceIndications :Type 2 diabetes mellitus with hemoglobin A1c goal of less than 7.0% ([facility]) USE TO Test 4 times daily 1 Each Active Insulin Glargine Solostar 100 UNIT/ML Subcutaneous Solution Pen-injector (Lantus SoloStar)Indicati ons:Type 2 diabetes mellitus with hemoglobin A1c goal of less than 7.0% ([facility]) Inject 55 Units under the skin daily. 45 mL 3 023 Active Additional Information Patient taking differently: 50 UnitsSubcutaneous Daily(Non-Specified), Reported on 08/07/2024 FreeStyle Geoffrey 2 SensorIndications :Type 2 diabetes mellitus with hemoglobin A1c goal of less than 7.0% ([facility]) Use as directed. Replace sensor every 14 [...] as needed for Dry eyes. 10 mL Active Fexofenadine HCl 180 MG Oral Tablet [...] MD 06/24/2023 Polyneuropathy, unspecified 09/02/2021 Atherosclerosis of [place] co ronary artery without angina pectoris 09/02/2021 [...] MARCELL (obstructive sleep apnea) 04/08/2010 COUGHLIN RESEARCH OTHER*[id number] 04/08/2010 HTN, goal below 140/90 03/24/2010 Mood [...] wall with infection 01/24/2012 03/12/2019 [facility] Study Research*[id number] 12/12/2010 02/16/2011 Adult body mass index 60.0-69.9 12/03/2010 08/12/2018 Overview: Per Obesity protocol #1 Body mass index (BMI) of 40.0-44.9 in adult 06/13/2010 12/03/2010 Overview (2015): ICD-10 update of inactive term [place] Research*[id number] 05/12/2010 10/18/2018 Overview (11/10/2015): Effect of Bariatric [...] 11:05 PM EDT Radha Nunez RN documented as of this encounter Mental Status * Because of a physical, mental, or emotional condition, do you have serious difficulty concentrating, remembering, or making decisions? (5 years old or older) Answer Entry Date Author No 06/04/2022 11:05 PM EDT Radha Nunez RN documented in this encounter Miscellaneous Notes * Telephone Encounter - Irma Lopez LPN - 08/10/2024 3:18 PM EST Dorys Sanford was referred as a potential candidate for enrollment for [facility]. A review of this chart was completed and: Dorys meets criteria for [facility]. Jump to Initiation Referring care team was notified via : [employer] communication PCP Pretty documented in this encounter Plan of Treatment Upcoming Encounters Date Type Department Care Team (Late st Contact Info) Description 01/10/2025 2:00 PM EDT Office Visit Optometry, [facility] [address] [facility] [address] [place] [address] Aramis Alvarado [address] [facility] [place] [address] Health Maintenance Due Date Last Done Comments HPV/Co-Test 12/11/1991 Cologuard 2006 Colonoscopy 2006 Colorectal Cancer Screening 2006 Fecal Occult Blood Test 2006 Sigmoidoscopy 2006 Cervical Cancer Screening 11/25/2019 Pap Smear 11/25/2019 11/24/2016 (Refu sed), 10/19/2002 COVID-19 Vaccine (3 - Pfizer risk series) 12/25/2020 11/27/2020, 11/01/2020 Mammogram 12/05/2023 12/04/2022, 07/30, 10/24/2002 CKD PHOS USE SMARTSET 05602 02/20/202401/29, 08/27/2021, 08/10/2021, Additional history exists Albumin/Creatinine Ratio 03/01/20242 023, 05/08/2022, 08/15/2019, Additional history exists Diabetic Foot Exam 07/14/2024 07/14/2023, 1 09/13/2022, 06/15/2022, Additional history exists Diabetic Eye Exam 12/16/2024 12/17/2023, , 12/17/2023, Additional history exists Depression Monitoring 12/21/2024 12/22/2023 HbA1c 01/31/2025 08/02/2024, 05/0 04/2024, 09/15/2023, Additional history exists GFR 02/05/2025 08/07/2024, 1211/2023, 03/05/2024, Additional history exists CKD HGB USE SMARTSET 78233 08/07/202508/07, 08/07/2024, 08/02/2024, Additional history exists O2 [...] this encounter Medical Devices Implanted Type Area Computer Applications Instructor Device Identifier Shelf Expiration Date Model / Serial / Lot [place] 16 X 20 Firm [id number] ( 320 Units ) - [id number] Implanted:Qty : 320 on 10/15/2015 by Rowan Borges MD [place] [facility] [place] - Non Human N/A: Abdomen LIFE CELL KIRA 05/29/2016 [id number] / / [id number] documented as of this encounter Advance Directives Documents on File Type Date Recorded Patient Human Resources Office Manager Expl anation POL 04/17/2019 2:05 PM POLST * Full Code [...] the patient have Health Care Power of Sales Superintendent? No * Full Code Date Activated Date Inactivated Comments 06/04/2022 10:50 PM 06/04/2022 11:13 PM This order reflects the patients wishes and were consensually agreed upon. Question Answer Comments Discussion of Advance Direct heriberto occurred with: Not Discussed due to patient's condition Does the patient have a Living Will? No Does the patient have Health Care Power of Sales Superintendent? No * Full Code Date Activated Date [...] Power of Attor terese? No Care Teams Fiber Optics Engineer Relationship Specialty Start Date End Date Gerri Olsen DO [address] [place] [id number] PCP - General Family Medicine 12/17/23 documented as of this encounter
--- OUTSIDE RECORDS SUMMARY | 2024-09-01 12:02 | External Medical Summary | Summary of Care ---
Author Name Unknown Organization [facility] Address [address] [place] [address] Phone [phone] Care Team Providers Care Assistant Golf Professional Name Role Phone PrettyGerri viera Parish DIOP Primary Care Provider Reason for Visit * Reason Onset Date Comments Appointment 08/10/2024 Encounter Details Date Type Department Care Team ([facility] st Contact Info) Description 08/10/2024 Telephone [facility], [place] [address] [place] [address] Velasquez Lyman, MARCELL [address] [place] [address] Appointment Allergies Active Allergy Reactions Criticality Noted Date Comments Moxifloxacin Hcl In Nacl Edema airway,Nausea/vomiti ng High 02/20/2010 Birds Wheezing 11/24/2016 Cephalosporins Hives 04/04/2018 Doxycycline Hyclate Nausea/vomiting 04/04/2018 Cephalexin Other (Please comment) 07/07/2018 Mouth was raw Ranitidine Rash 04/04/2018 Semaglutide 05/03/2024 Sulfa Antibiotics Anaphylaxis High 03/19/2018 Difficulty breathing Tetracycline 12/22/2023 Other Reaction(s): blisters on tongue documented as of this encounter (statuses as of 08/11/2024) Medications Multiple Vitamin (MULTI-VITAMIN DAILY) Tablet Take 1 Tablet by mouth in the morning. Take 1 tab by mouth daily. Activ e CPAP every night at bedtime. Apply prongs to nose daily at bedtime, settings 08/15 Active Artificial Tears 0.1-0.3 % Ophthalmic Solution (Dextran 70-Hypromellose) Instill into eye. Active Global Ease Inject Pen [place] 31G X 5 MM (Insulin Pen Needle)Indication [...] A1c goal of less than 7.0% ([facility]) TEST 3 TIMES A DAY. E11.9 100 Each 3 023 Active Albuterol Sulfate HFA 108 (90 Base) MCG/ACT Inhalation Aerosol SolutionIndicatio ns:COPD, group C, by GOLD 2017 classification ([facility]) TAKE 2 PUFFS BY MOUTH 4 TIMES [...] 30 Tablet 5 Active FreeStyle Geoffrey 2 [place] DeviceIndications :Type 2 diabetes mellitus with hemoglobin A1c goal of less than 7.0% (HCC) USE TO Test 4 times daily 1 Each Active Insulin Glargine Solostar 100 UNIT/ML Subcutaneous Solution Pen-injector (Lantus SoloStar)Indicati ons:Type 2 diabetes mellitus with hemoglobin A1c goal of less than 7.0% ([facility]) Inject 55 Units under the skin daily. 45 mL 3 023 Active Additional Information Patient taking differently: 50 UnitsSubcutaneous Daily(Non-Specified), Reported on 08/07/2024 FreeStyle Geoffrey 2 SensorIndications :Type 2 diabetes mellitus with hemoglobin A1c goal of less than 7.0% ([facility]) Use as directed. Replace sensor every 14 [...] skin once a week. Wednesday's 6 mL Active Additional Information Patient taking differently: 1.5 [...] AND 1 TABLET BEFORE BEDTIME. 180 Tablet Active Baclofen 10 MG Oral Tablet (Lioresal) [...] Tablet (Chelsey) Take 1 Tablet by mouth. 023 Active Ipratropium-Albut gregg 0.5-2.5 (3) MG/3ML Inhalation [...] as of this encounter (statuses as of 08/11/2024) Active Problems Problem Noted Date Diagnosed Date [...] MD 06/24/2023 Polyneuropathy, unspecified 09/02/2021 Atherosclerosis of [place] co ronary artery without angina pectoris 09/02/2021 [...] MARCELL (obstructive sleep apnea) 04/08/2010 COUGHLIN RESEARCH OTHER*[id number] 04/08/2010 HTN, goal below 140/90 03/24/2010 Mood disorder 03/24/2010 Overview (06/22/2017): ICD-10 update of inactive term Chronic bronchitis 03/24/2010 Tobacco use disorder 12/06/2009 Cervical radiculopathy at C5 Chronic midline low back pain with sciatica Dyslipidemia, goal LDL below 100 documented as of this encounter (statuses as of 08/11/2024) Resolved Problems Problem Noted Date Diagnosed Date [...] of abdominal wall with infection 01/24/2012 03/12/2019 [facility] Study Research*[id number] 12/12/2010 02/16/2011 Adult body mass index 60.0-69.9 12/03/2010 08/12/2018 Overview: Per Obesity protocol #1 Body mass index (BMI) of 40.0-44.9 in adult 06/13/2010 12/03/2010 Overview (2015): ICD-10 update of inactive term Saule Research*[id number] 05/12/2010 10/18/2018 Overview (11/10/2015): Effect of Bariatric [...] as of this encounter (statuses as of 08/11/2024) Immunizations Name Administration Dates Next Due COVID-19 [...] 11:05 PM LORRAINET Radha Nunez RN * Because of a physical, mental, or emotional condition, do you have difficulty doing errands alone such as visiting a doctors office or shopping? (15 years old or older) Answer Date of Assessment Author No 06/04/2022 11:05 PM EDT Mounter Saxophones, Crystal, RN documented as of this encounter Mental Status * Because of a physical, mental, or emotional condition, do you have serious difficulty concentrating, remembering, or making decisions? (5 years old or older) Answer Entry Date Author No 06/04/2022 11:05 PM EDT Radha Nunez RN documented in this encounter Plan of Treatment Upcoming Encounters Date Type Department Care Team (Late st Contact Info) Description 08/14/2024 2:30 PM EST Home Visit [facility], [facility] [address] [place] [address] Simran Castano PA-C [address] [place] [address] 08/22/2024 12:30 PM EST Home Visit [facility], [facility] [address] [place] [address] Rosa Gomez RN [address] [place] [address] 01/10/2025 2:00 PM EDT Office Visit Optometry, [facility] [address] [place] Jordan [address] Aramis Alvarado, [address] [facility] [place] [address] Health Maintenance Due Date Last Done Comments HPV/Co-Test 12/11/1991 Cologuard 2006 Colonoscopy 2006 Colorectal Cancer Screening 2006 Fecal Occult Blood Test 2006 Sigmoidoscopy 2006 Cervical Cancer Screening 11/25/2019 Pap Smear 11/25/2019 11/24/2016 (Refu sed), 10/19/2002 COVID-19 Vaccine (3 - Pfizer risk series) 12/25/2020 11/27/2020, 11/01/2020 Mammogram 12/05/2023 12/04/2022, 07/30, 10/24/2002 CKD PHOS USE SMARTSET 65746 02/20/202401/293, 08/27/2021, 08/10/2021, Additional history exists Albumin/Creatinine Ratio 03/01/2024 023, 05/08/2022, 08/15/2019, Additional history exists Diabetic Foot Exam 07/14/2024 07/14/2023, 1 09/13/2022, 06/15/2022, Additional history exists Diabetic Eye Exam 12/16/2024 12/17/2023, , 12/17/2023, Additional history exists Depression Monitoring 12/21/2024 12/22/2023 HbA1c 01/31/2025 08/02/2024, 05/0 04/2024, 09/15/2023, Additional history exists GFR 02/05/2025 08/07/2024, 1211/2023, 03/05/2024, Additional history exists CKD HGB USE SMARTSET 61171 08/07/202508/07, 08/07/2024, 08/02/2024, Additional history exists O2 [...] this encounter Medical Devices Implanted Type Area Mechanical Energy Engineer Device Identifier Shelf Expiration Date Model / Serial / Lot Wilderttice 16 X 20 Firm [id number] ( 320 Units ) - [id number] Implanted:Qty : 320 on 10/15/2015 by Rowan Borges MD at [place] [facility] [place] Tissue - Non Human N/A: Abdomen LIFE CELL KIRA 05/29/2016 [id number] / / [id number] documented as of this encounter Advance Directives Documents on File Type Date Recorded Patient Fuel Injection Servicer Daisy villareal POLST 04/17/2019 2:05 PM POLST * Full [...] the patient have Health Care Power of Feather Duster Winder? No * Full Code Date Activated Date Inactivated Comments 06/04/2022 10:50 PM 06/04/2022 11:13 PM This order reflects the patients wishes and were consensually agreed upon. Question Answer Comments Discussion of Advance Direct heriberto occurred with: Not Discussed due to patient's condition Does the patient have a Living Will? No Does the patient have Health Care Power of Feather Duster Winder? No * Full Code Date Activated Date [...] of Attor terese? No Care Teams Assistant Golf Professional Relationship Specialty Start Date End Date Gerri Olsen DO [address] [place] [address] PCP - General Family Medicine 12/17/23 documented as of this encounter
--- OUTSIDE RECORDS SUMMARY | 2024-09-01 12:02 | External Medical Summary | Summary of Care ---
Author Name Unknown Organization [facility] Address [address] [place] [address] Phone [phone] Care Team Providers Care Mental Health Specialist Name Role Phone PrettyGerri viera Parish DIOP Primary Care Provider Reason for Visit * Reason Onset Date Comments [facility]: Screening 08/10/2024 Encounter Details Date Type Department Care Team ([facility] st Contact Info) Description 08/10/2024 Telephone [facility], [facility] [address] [place] Chen [address] Irma Lopez, JAIR [address] [place] [address] [facility]: Screening Allergies [...] into eye. Active Global Ease Inject Pen [place] 31G X 5 MM (Insulin Pen Needle)Indication s:Type 2 diabetes mellitus with hemoglobin A1c goal of less than 7.0% ([facility]) Use up to four times daily as [...] hemoglobin A1c goal of less than 7.0% ([facility]) TEST 3 TIMES A DAY. E11.9 100 Each 3 023 Active Albuterol Sulfate HFA 108 (90 Base) MCG/ACT Inhalation Aerosol SolutionIndicatio ns:COPD, group C, by GOLD 2017 classification ([facility]) TAKE 2 PUFFS BY MOUTH [...] 30 Tablet 5 Active FreeStyle Geoffrey 2 [place] DeviceIndications :Type 2 diabetes mellitus with hemoglobin A1c goal of less than 7.0% ([facility]) USE TO Test 4 times daily 1 Each Active Insulin Glargine Solostar 100 UNIT/ML Subcutaneous Solution Pen-injector (Lantus SoloStar)Indicati ons:Type 2 diabetes mellitus with hemoglobin A1c goal of less than 7.0% ([facility]) Inject 55 Units under the skin daily. 45 mL 3 023 Active Additional Information Patient taking differently: 50 UnitsSubcutaneous Daily(Non-Specified), Reported on 08/07/2024 FreeStyle Geoffrey 2 SensorIndications :Type 2 diabetes mellitus with hemoglobin A1c goal of less than 7.0% ([facility]) Use as directed. Replace sensor [...] MD 06/24/2023 Polyneuropathy, unspecified 09/02/2021 Atherosclerosis of [place] co ronary artery without angina pectoris 09/02/2021 [...] MARCELL (obstructive sleep apnea) 04/08/2010 COUGHLIN RESEARCH OTHER*[id number] 04/08/2010 HTN, goal below 140/90 03/24/2010 Mood [...] wall with infection 01/24/2012 03/12/2019 [facility] Study Research*[id number] 12/12/2010 02/16/2011 Adult body mass index 60.0-69.9 12/03/2010 08/12/2018 Overview: Per Obesity protocol #1 Body mass index (BMI) of 40.0-44.9 in adult 06/13/2010 12/03/2010 Overview (2015): ICD-10 update of inactive term Saule Research*[id number] 05/12/2010 10/18/2018 Overview (11/10/2015): Effect of Bariatric [...] Encounter - Irma Lopez LPN - 08/10/2024 1:59 PM EST Sent to leadership documented in this encounter Plan of Treatment Upcoming Encounters Date Type Department Care Team (Late st Contact Info) Description 01/10/2025 2:00 PM EDT Office Visit Optometry, [facility] [address] [place] [address] Aramis Alvarado, [address] [facility] [place] [address] Health Maintenance Due Date Last Done Comments HPV/Co-Test 12/11/1991 Cologuard 2006 Colonoscopy 2006 Colorectal Cancer Screening 2006 Fecal Occult Blood Test 2006 Sigmoidoscopy 2006 Cervical Cancer Screening 11/25/2019 Pap Smear 11/25/2019 11/24/2016 (Refu sed), 10/19/2002 COVID-19 Vaccine (3 - Pfizer risk series) 12/25/2020 11/27/2020, 11/01/2020 Mammogram 12/05/2023 12/04/2022, 07/30, 10/24/2002 CKD PHOS USE SMARTSET 14452 02/20/202401/29, 08/27/2021, 08/10/2021, Additional history exists Albumin/Creatinine Ratio 03/01/2024 023, 05/08/2022, 08/15/2019, Additional history exists Diabetic Foot Exam 07/14/2024 07/14/2023, 1 09/13/2022, 06/15/2022, Additional history exists Diabetic Eye Exam 12/16/2024 12/17/2023, , 12/17/2023, Additional history exists Depression Monitoring 12/21/2024 12/22/2023 HbA1c 01/31/2025 08/02/2024, 05/0 04/2024, 09/15/2023, Additional history exists GFR 02/05/2025 08/07/2024, 12/11/2023, 03/05/2024, Additional history exists CKD HGB USE SMARTSET 17408 08/07/202508/07, 08/07/2024, 08/02/2024, Additional history exists O2 [...] this encounter Medical Devices Implanted Type Area Mortgage Loan Counselor Device Identifier Shelf Expiration Date Model / Serial / Lot Wilderttice 16 X 20 Firm [id number] ( 320 Units ) - [id number] Implanted:Qty : 320 on 10/15/2015 by Rowan Borges MD at [place] [facility] [place] Tissue - Non Human N/A: Abdomen LIFE CELL KIRA 05/29/2016 [id number] / / [id number] documented as of this encounter Advance Directives Documents on File Type Date Recorded Patient Bank Consultant Expl anation POLST 04/17/2019 2:05 PM POLST [...] the patient have Health Care Power of Mutton Puncher? No * Full Code Date Activated Date Inactivated Comments 06/04/2022 10:50 PM 06/04/2022 11:13 PM This order reflects the patients wishes and were consensually agreed upon. Question Answer Comments Discussion of Advance Direct heriberto occurred with: Not Discussed due to patient's condition Does the patient have a Living Will? No Does the patient have Health Care Power of Mutton Puncher? No * Full Code Date Activated Date [...] Power of Attor terese? No Care Teams Mental Health Specialist Relationship Specialty Start Date End Date Gerri Olsen DO [address] [place] [address] PCP - General Family Medicine 12/17/23 documented as of this encounter
--- OUTSIDE RECORDS SUMMARY | 2024-09-01 12:02 | External Medical Summary | Summary of Care ---
Author Name Unknown Organization [facility] Address [address] [place] [address] Phone [phone] Care Team Providers Care Slot Machine Key Person Name Role Phone Gerri Olsen DO Primary Care Provider Reason for Visit * Reason Onset Date Comments Home Monitoring Orders Only 08/10/2024 Encounter Details Date Type Department Care Team (Late st Contact Info) Description 08/10/2024 Home Monitoring [facility], [facility] [address] [facility] [place] [address] Lobo Leone DO [address] [facility] [place] [address] Pneumonia* Allergies Active Allergy Reactions Criticality Noted Date [...] into eye. Active Global Ease Inject Pen [place] 31G X 5 MM (Insulin Pen Needle)Indication [...] hemoglobin A1c goal of less than 7.0% ([facility]) TEST 3 TIMES A DAY. E11.9 100 Each 3 023 Active Albuterol Sulfate HFA 108 (90 Base) MCG/ACT Inhalation Aerosol SolutionIndicatio ns:COPD, group C, by GOLD 2017 classification ([facility]) TAKE 2 PUFFS BY MOUTH 4 TIMES [...] 30 Tablet 5 Active FreeStyle Geoffrey 2 [place] DeviceIndications :Type 2 diabetes mellitus with hemoglobin A1c goal of less than 7.0% ([facility]) USE TO Test 4 times daily 1 Each Active Insulin Glargine Solostar 100 UNIT/ML Subcutaneous Solution Pen-injector (Lantus SoloStar)Indicati ons:Type 2 diabetes mellitus with hemoglobin A1c goal of less than 7.0% ([facility]) Inject 55 Units under the skin daily. 45 mL 3 Active Additional Information Patient taking differently: 50 UnitsSubcutaneous Daily(Non-Specified), Reported on 08/07/2024 FreeStyle Geoffrey 2 SensorIndications :Type 2 diabetes mellitus with hemoglobin A1c goal of less than 7.0% ([facility]) Use as directed. Replace sensor every 14 days 6 Each 2 Active NovoLOG FlexPen 100 UNIT/ML Subcutaneous Solution Pen-injector (insulin aspart) Inject 20 Units under the skin in the morning and 20 Units at noon and 20 Units in the evening. Inject before meals. - Subcutaneous - please DC VIALs - call patient when ready 60 Each 3 Active Prochlorperazine Maleate 10 MG Oral Tablet (Compazine) [...] a week. Wednesday's 6 mL 3 Active Atorvastatin Calcium 40 MG Oral Tablet (Lipitor)Indicati [...] 1 TABLET BEFORE BEDTIME. 180 Tablet 1 024 Active Baclofen 10 MG Oral Tablet (Lioresal) Take 1 Tablet by mouth in the morning and 1 Tablet at noon and 1 Tablet before bedtime. Active Gabapentin 300 MG Oral Capsule (Neurontin) [...] needed for Dry eyes. 10 mL 12 024 Active Fexofenadine HCl 180 MG Oral Tablet [...] hours as needed for Pain, Moderate. Active Tirzepatide 2.5 MG/0.5ML Subcutaneous Solution Pen-injector (Mounjaro) Inject 2.5 mg under the skin once a week. 2023 Disconti nued(Med ication List Clean Up) documented as of this [...] MD 06/24/2023 Polyneuropathy, unspecified 09/02/2021 Atherosclerosis of [place] co ronary artery without angina pectoris 09/02/2021 [...] MARCELL (obstructive sleep apnea) 04/08/2010 COUGHLIN RESEARCH OTHER*[id number] 04/08/2010 HTN, goal below 140/90 03/24/2010 Mood [...] wall with infection 01/24/2012 03/12/2019 [place] Study Research*[id number] 12/12/2010 02/16/2011 Adult body mass index 60.0-69.9 12/03/2010 08/12/2018 Overview: Per Obesity protocol #1 Body mass index (BMI) of 40.0-44.9 in adult 06/13/2010 12/03/2010 Overview (2015): ICD-10 update of inactive term [place] Research*[id number] 05/12/2010 10/18/2018 Overview (11/10/2015): Effect of Bariatric [...] mRNA, LNP-s, No Pre serve, 2-Dose Series ([employer]ctloud) 11/27/2020,11/01/2020 Hepatitis B, 20+ yrs 02/07/2020,08/21/2019,07/12 Pneumococcal [...] documented in this encounter Progress Notes * Lissette Cosby OSA - 08/10/2024 12:45 PM EST Patient has been successfully enrolled to the [place] [address] Care Coordination and Integration (CCI) program and will be provided with the Current Health Wearable device to facilitate their participation in remote monitoring: Wearable Only Patient has been oriented to remote patient monitoring by their Ornamental Iron Worker. The case repairer has also provided the patient with instruction and education regarding the program. Current health to assist with initial device set-up. Delivery Method: Vendor supplied Patient understands that this monitoring should not be used as a replacement for emergency and/or urgent care. If patient experiences any urgent symptoms, they are aware to call their sr. payroll manager for additional instructions. In emergency situations, they will either call 911 or report directly to the ED for further evaluation. documented in this encounter Plan of Treatment Upcoming Encounters Date Type Department Care Team (Late st Contact Info) Description 01/10/2025 2:00 PM EDT Office Visit Optometry, [facility] [address] [facility] [address] [place] [address] Aramis Alvarado OD [address] [place] [address] Health Maintenance Due Date Last Done Comments HPV/Co-Test 12/11/1991 Cologuard 2006 Colonoscopy 2006 Colorectal Cancer Screening 2006 Fecal Occult Blood Test 2006 Sigmoidoscopy 2006 Cervical Cancer Screening 11/25/2019 Pap Smear 11/25/2019 11/24/2016 (Refu sed), 10/19/2002 COVID-19 Vaccine (3 - Pfizer risk series) 12/25/2020 11/27/2020, 11/01/2020 Mammogram 12/05/2023 12/04/2022, 07/30, 10/24/2002 CKD PHOS USE SMARTSET 86604 02/20/2024/10/2022, 08/27/2021, 08/10/2021, Additional history exists Albumin/Creatinine Ratio 03/01/20242 023, 05/08/2022, 08/15/2019, Additional history exists Diabetic Foot Exam 07/14/2024 07/14/2023, 1 09/13/2022, 06/15/2022, Additional history exists Diabetic Eye Exam 12/16/2024 12/17/2023, , 12/17/2023, Additional history exists Depression Monitoring 12/21/2024 12/22/2023 HbA1c 01/31/2025 08/02/2024, 05/0 04/2024, 09/15/2023, Additional history exists GFR 02/05/2025 08/07/2024, 1211/2023, 03/05/2024, Additional history exists CKD HGB USE SMARTSET 23920 08/07/202508/07, 08/07/2024, 08/02/2024, Additional history exists O2 [...] this encounter Medical Devices Implanted Type Area Sewing Machine Operator Plastic Zipper Device Identifier Shelf Expiration Date Model / Serial / Lot Vivienne 16 X 20 Firm [id number] ( 320 Units ) - [id number] Implanted:Qty : 320 on 10/15/2015 [place]an Borges [place] [facility] [place] - Non Human N/A: Abdomen LIFE CELL KIRA 05/29/2016 [id number] / / [id number] documented as of this encounter Visit Diagnoses Diagnosis Pneumonia- Primary Pneumonia, organism unspecified documented in this encounter Advance Directives Documents on File Type Date Recorded Patient Border Machine Operator Expl anation POLST 04/17/2019 2:05 PM [...] the patient have Health Care Power of Process Eng? No * Full Code Date Activated Date Inactivated Comments 06/04/2022 10:50 PM 06/04/2022 11:13 PM This order reflects the patients wishes and were consensually agreed upon. Question Answer Comments Discussion of Advance Direct heriberto occurred with: Not Discussed due to patient's condition Does the patient have a Living Will? No Does the patient have Health Care Power of Process Eng? No * Full Code Date Activated Date [...] Power of Attor terese? No Care Teams Slot Machine Key Person Relationship Specialty Start Date End Date Gerri Olsen DO [address] [place] [id number] PCP - General Family Medicine 12/17/23 documented as of this encounter
--- OUTSIDE RECORDS SUMMARY | 2024-09-01 12:03 | External Medical Summary ---
Author Name Unknown Address Unknown Organization : Laboratory Report Ordering Provider Test Date Status ELMER CANELA 08/02/2024 09:27:00 Final Observation Date Value Abnormality Reference (Units ) Status Alkaline Phosphatase 08/12/2024 11:16 119 Final Reference range: 37 to 153 U nit: U/L Liver Fract. 08/12/2024 11:16 39 Final Reference range: 25 to 69 Un it: % Bone Fract. 08/12/2024 11:16 42 F inal Reference range: 28 to 66 Un it: % Intestinal Frac. 08/12/2024 11:16 19 Final Reference range: 1 to 24 Uni t: % Macrohepatic Isoenzyme 08/12/2024 11:16 0 Final Reference range: <=0 Unit: % Test performed at [facility]/[address] [address] Director: DAYLIN NIETO MD,PHD Placental Fract. 08/12/2024 11:16 0 Final Reference range: <=0 Unit: % Performing Location
[2024-09-01] MEDS: ORTHO JOINT ANESTHETIC ONE (12:07)
[2024-09-01] MEDS: TRANEXAMIC ACID 1,000 MG **IV Intra-op IV SCH (12:18)
--- NOTE | 2024-09-01 12:20 | Operative Report ---
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 A tenodesis was opted. This was a separate and distinct portion of the procedure. For these reasons, a CPT code modifier 59 will be added to this case. Implants used: I used a [employer] Comprehensive reverse total shoulder arthroplasty system with a size 12 press fit micro humeral stem, a +6 offset humeral tray and a +3 retentive humeral bearing, a 25 mm small augment baseplate with a 6.5 mm central screw and superior and inferior locking screws, and a size 40 mm eccentric glenosphere. Dorys arrived at [facility], [place] for the above procedure. She was seen in the preoperative holding area and the operative extremity was identified and signed. She was given a preoperative antibiotic, TXA, and an interscalene nerve block. She was taken back to the operating room, laid on table in supine position, and put under general anesthesia. She was then put into the beachchair position. The shoulder was then prepped and draped in sterile fashion. A timeout was done and the patient and the operative extremity was properly identified. A deltopectoral approach was used. Dissection was taken down through the fascia and the deltoid was retracted laterally and the conjoined tendon was retracted medially. The anterior shoulder was exposed. The biceps groove was opened up and the biceps tendon was examined extensively. The biceps tendon demonstrated enlargement and inflammatory changes consistent with longstanding inflammation in the context of osteoarthritis and cuff arthropathy. The long head of the biceps tendon was then tenodesed to the upper border of the pectoralis major. This was a separate and distinct portion of the procedure. The subscapularis was then directly released off the lesser tuberosity with a peel technique. The inferior capsule was released and the humeral head was dislocated. A canal finding reamer was sent down the center of the humeral canal. Sequential reaming up to a size 12 reamer was done. Off that reamer, a proximal humeral resection guide was placed. The proximal humerus was resected at 135 of inclination and 25 of retroversion. Osteophytes were then removed and the glenoid was exposed. Time was spent doing a complete capsular and labral release. The glenoid guide was then placed in the inferior aspect of the glenoid. A 3.2 mm Steinmann pin was then placed into the glenoid vault at 10 of inclination. The glenoid baseplate was then reamed. The final size 25 mm small augment baseplate was then impacted in the place. A 6.5 mm central screw was then placed followed by superior and inferior locking screws. A 40 mm eccentric glenosphere was then impacted into place. Surrounding soft tissues were then injected with 100 cc an orthopedic pain control cocktail. The proximal humerus was then exposed. Sequential broaching of the humerus up to a size 12 broach was done. Off that broach a +6 offset and +3 retentive humeral tray was trialed. The shoulder was then reduced, brought through a full range of motion, and felt to be stable. The shoulder was then dislocated and the broach was removed. The final size 12 micro press-fit humeral stem was then impacted into place. A +3 retentive humeral bearing was then snapped onto a +6 offset humeral tray. The humeral tray was then impacted onto the humeral stem. The shoulder was once again reduced, brought through a full range of motion, and felt to be stable. The subscapularis was poor quality and unable to be repaired. A dilute betadyne lavage was then done for 3 minutes. The joint was then irrigated with normal saline solution. Hemostasis was obtained. The interval was closed with 2-0 Vicryl suture. The skin was then closed with 2-0 Vicryl and roney. A Silverlon dressing was placed and the arm was rested in a regular arm sling. She was then extubated and transferred to a hospital bed. She taken to the postanesthesia care unit in stable condition. She tolerated the procedure well. Santy Awad PA-C, was present for the entire procedure. He was critical for patient positioning, prepping, draping, retraction exposure, wound closure and application of sterile dressing. I attest to the content of the Intraoperative Record and any orders documented therein. Any exceptions are noted below.
--- NOTE | 2024-09-01 13:27 | XRay Report ---
XR shoulder LT min 2V routine CLINICAL HISTORY: Post shoulder surgery COMPARISON: Left shoulder radiographs May 17, 2024. FINDINGS: Alignment of the reverse total left shoulder arthroplasty is anatomic. There is no peripro sthetic fracture or unexpected radiopaque foreign body. There are skin roney. IMPRESSION: Expected findings following total left shoulder arthroplasty. ACT 112: Negative or not required by law. Electronically signed by: Jhon Mckenna M.D. 09/01/2024 1:26 PM
[2024-09-01] MEDS ORDERED: NON-FORMULARY MEDICATION (Insulin Aspart U-100 [Novolog Flexpen U-100 Insulin] 100 unit/mL SCH (13:59)
[2024-09-01] MEDS ORDERED: METOCLOPRAMIDE HCL INJ 5 MG/ML 2 ML VIAL IV PRN (13:59)
[2024-09-01] MEDS ORDERED: PHARMACY GLYCEMIC MGMT CONSULT PRN (13:59)
[2024-09-01] MEDS ORDERED: NALOXONE HCL 0.4 MG/1 ML VIAL/CARP IV PRN (13:59)
[2024-09-01] MEDS ORDERED: BENZONATATE 100 MG CAPSULE PO PRN (13:59)
[2024-09-01] MEDS ORDERED: PROCHLORPERAZINE MALEATE 10 MG TAB PO PRN (13:59)
[2024-09-01] MEDS ORDERED: ALBUTEROL HFA 8 GM INHALER INH PRN (13:59)
[2024-09-01] MEDS ORDERED: MAGNESIUM HYDROXIDE SUSP 30 ML UDC PO PRN (13:59)
[2024-09-01] MEDS ORDERED: ALBUT/IPRATROP 3MG/0.5MG NEB 3 ML VIAL INH PRN (13:59)
[2024-09-01] MEDS ORDERED: HYDROmorphone INJ 0.5 MG/0.5 ML SYR IV PRN (13:59)
[2024-09-01] MEDS ORDERED: NON-FORMULARY MEDICATION (Dulaglutide [Trulicity] 4.5 mg/0.5 mL pen injector) SQ SCH (13:59)
[2024-09-01] MEDS ORDERED: bisacodyL 10 MG SUPP PR PRN (13:59)
[2024-09-01] MEDS ORDERED: traZODone HCL 50 MG TAB PO PRN (13:59)
[2024-09-01] MEDS: KETOROLAC TROMETHAMINE 15 MG/ML VIAL IV SCH (14:28)
--- NOTE | 2024-09-01 14:28 | Anesthesiology Progress Note ---
Date of Service September 01, 2024 Anesthesia Post Procedure Vital Signs Vital Signs: Temp Pulse Pulse Resp BP Pulse Ox O2 Del Method 09/01/24 14:22 84 18 104/64 93 Room Air 09/01/24 13:35 82 15 112/64 95 Nasal Cannula 09/01/24 13:25 85 15 133/64 94 Nasal Cannula 09/01/24 13:15 36.7 C 85 15 142/75 H 92 Nasal Cannula 09/01/24 13:05 85 16 122/81 93 Nasal Cannula 09/01/24 12:55 85 17 135/97 94 Oxymask 09/01/24 12:45 36.9 C 85 15 128/77 99 Oxymask 09/01/24 09:57 Room Air 09/01/24 09:40 36.9 C 92 H 20 123/74 97 Room Air O2 Flow Rate 09/01/24 14:22 09/01/24 13:35 2 09/01/24 13:25 2 09/01/24 13:15 2 09/01/24 13:05 2 09/01/24 12:55 9 09/01/24 12:45 9 09/01/24 09:57 09/01/24 09:40 Pain Intensity Left Shoulder: Pain Intensity: 7 Transfer of Care Handoff Completed per policy Notes Mental Status: alert / awake / arousable and participated in evaluation Patient Amnestic to Procedure: Yes Nausea / Vomiting: adequately controlled Pain: adequately controlled Airway Patency, RR, SpO2: stable & adequate BP & HR: stable & adequate Hydration State: stable & adequate Anesthetic Complications: no major complications apparent and Pt Satisfied with anesthetic care
--- NOTE | 2024-09-01 14:40 | Pharmacy Report ---
Pharmacy Glycemic Short Note 2 - Date of Service September 01, 2024 - Glycemic Short BSG Results (Last 24 hours): 09/01/24 09/01/24 09/01/24 09:46 12:45 13:54 POC Glucose 251 H 230 H 241 H OUTPATIENT ANTIDIABETIC REGIMEN: * Lantus 55 units SQ Q PM * Novolog 20 units AC * Trulicity 4.5mg SQ weekly HbA1c 8.6% on 08-09-24 ASSESSMENT: * 63 year old female was admitted today for a left reverse total shoulder arthr oplasty. Pharmacy has been consulted for glycemic management postop. * Preop BSG was 251mg/dL and 241mg/dL post op. She did receive 10mg iv dexamethasone x 1 preop. Per RN, she did have 55 units of Lantus last evening. Lantus 55 units SQ x 1 was ordered for this afternoon and weight based bolus insulin dosing with a stress of 2 has also been started. * Overnight BSG checks have been added to ensure BSG returns closer to goal range. PLAN FOR INPATIENT GLYCEMIC CONTROL: * Hold outpatient diabetes medications * Basal insulin * Lantus 55 units SQ x 1 today, will reassess further doses/timing tomorrow morning. * Bolus insulin * NovoLog per scale ACHS or Q6hrs while NPO * Goal Range: Low 110 mg/dL - High 140 mg/dL * Correction Factor: 20 mg/dL/unit * Nutritional / Prandial insulin per carb ratio of 1 unit per 6 grams CHO consumed
[2024-09-01] MEDS: BACLOFEN 10 MG TAB PO SCH (15:06)
[2024-09-01] MEDS: GABAPENTIN 600 MG TAB PO SCH (15:06)
[2024-09-01] MEDS: INSULIN ASPART PER UNIT CHARGE SC SCH ×2 (15:11→20:58)
[2024-09-01] MEDS: LANTUS PER UNIT CHARGE SC ONE (15:11)
[2024-09-01] MEDS: TORSEMIDE 100 MG TAB PO SCH (17:13)
[2024-09-01] MEDS: ceFAZolin 1000MG 1,000 MG/7.5 ML SYR IV SCH (18:22)
[2024-09-01] MEDS: DOCUSATE SODIUM 100 MG CAP PO SCH (20:06)
[2024-09-01] MEDS: SENNA 8.6 MG TAB PO SCH (20:06)
[2024-09-01] MEDS: POTASSIUM CHLORIDE CRTAB 20 MEQ TABCR PO SCH (20:06)
[2024-09-01] MEDS: ATORVASTATIN 40 MG TAB PO SCH (20:06)
[2024-09-01] MEDS ORDERED: NON-FORMULARY MEDICATION (Insulin Glargine [Lantus Solostar U-100 Insulin] 100 unit/mL (3 SQ SCH (21:00)
[2024-09-01] MEDS: FLUTICASONE FUROATE 100MCG 14 PUFFS/INHALER INH SCH (21:00)
[2024-09-01] MEDS ORDERED: NON-FORMULARY MEDICATION (Fluticasone-Umeclidin-Vilanter [Trelegy Ellipta] 100-62.5-25 mcg INH SCH (21:00)
[2024-09-01] MEDS: UMECLIDINIUM/VILANTEROL 62.5/25MCG 7 PUFFS/INHALER INH SCH (21:00)
[2024-09-02] MEDS: INSULIN ASPART PER UNIT CHARGE SC SCH (00:18)
[2024-09-02] MEDS: MONTELUKAST SODIUM 10 MG TABLET PO SCH (07:49)
[2024-09-02] MEDS: ASPIRIN 81 MG ECTAB PO SCH (07:49)
[2024-09-02] MEDS: SERTRALINE HCL 50 MG TABLET PO SCH (07:49)
[2024-09-02] MEDS: PARoxetine HCL 10 MG TAB PO SCH (07:50)
[2024-09-02] MEDS: MULTIVITAMIN TAB PO SCH (07:50)
[2024-09-02] MEDS: PANTOprazole 40 MG TAB PO SCH (07:51)
--- NOTE | 2024-09-02 08:23 | Orthopedic Progress Note ---
Date of Service September 02, 2024 Assessment & Plan (1) Status post reverse total replacement of left shoulder: Overall she is doing very well. She is not having much pain in the left shoulder. She will be seen by physical therapy today for ambulation and range of motion exercises. She can be discharged to home later today. She will follow-up orthopedics in 2 weeks. Sandra Saul was seen and examined at bedside this morning. Overall she is doing fair ly well. She is not having much pain in the left shoulder. She was able to get some sleep last night. She has no complaints.. Review of Systems All systems reviewed & are unremarkable except as noted in HPI & below. Physical Exam On physical exam the left shoulder, the dressing is clean and dry. She has active motion of her hand and her wrist. She is wearing her sling as instructed.. Results & Data Results & Data Laboratory Results . Diagnostic Findings Postoperative x-rays of the left shoulder show the prosthesis to be in anatomic alignment without any evidence of fracture complication, or loosening.. PG Care Time/CCT Total # of Minutes Spent Total Time Spent with Patient: Total time spent is greater than 50% in coordination of care (as documented) at patient's floor/unit and/or counseling patient: Coding Level of Care Code 11652 Post Operative Follow-Up Diagnoses Status post reverse total replacement of left shoulder Z96.612
--- NOTE | 2024-09-02 08:24 | Discharge Summary ---
Date of Service September 02, 2024 Principal Diagnosis Same as "Discharge Diagnosis" noted below under Discharge Instructions. Discharge Exam On physical exam the left shoulder, the dressing is clean and dry. She has active motion of her hand and her wrist. She is wearing her sling as instructed.. Discharge Data Procedures Performed Operation Date: 09/01/24 11:00 Actual Procedures p Left Reverse Total Shoulder Arthroplasty(Left) - Aramis Hanson DO Ordered Studies 09/01/24 05:00 US - OR guided needle placemen Routine Hospital Course (1) Status post reverse total replacement of left shoulder: On September 01, 2024 Tati arrived at [facility] and underwent a left reverse shoulder replacement without complication. She had a general anesthetic and a left interscalene nerve block. Postoperatively she was placed in a sling and transferred to the general orthopedic floors. Her hospital course was uneventful. On postop day #1, her vital signs were stable and her pain was well-controlled. She was able to participate well with physical therapy doing ambulation and range of motion exercises. She was then discharged to home. She will follow-up orthopedics in 2 weeks. PG Care Time/CCT Total # of Minutes Spent Total Time Spent with Patient: Total time spent is greater than 50% in coordination of care (as documented) at patient's floor/unit and/or counseling patient: Discharge Plan Discharge Items Patient Disposition: Home - Self-Care Reason For Visit: Left Shoulder Arthritis Discharge Diagnosis: Left shoulder replacement Activity: Per Instructions section Non-emergency contact: Surgeon Call non-emergency contact if: your wound has increased redness and your wound has increased drainage Follow-up/Referrals: Sofie Casey DO [Primary Care Provider] - Diet: Regular Addtl Attending Provider Instructions: Activity and Therapy Recommendations: * If you are using [facility] then therapy will be provided at your home until they feel you have accomplished all of your goals. * If you are using [facility] then Physical Therapy will be provided until they feel you are ready to start Outpatient Physical Therapy. * If you are not using home therapy then Outpatient Physical Therapy should start about 3-5 days from your day of surgery. Therapy will last about 8-12 weeks * Wear your sling for 3 weeks, unless otherwise instructed. You may remove your sling to shower and to dress, but otherwise, you should be in your sling at all times, including while sleeping * The shoulder replacement is very stable and you can use your hand while in the sling * You were shown a series of exercises in the hospital. Do these exercises daily including the exercises you were shown in physical therapy. Medications: * Narcotic You will likely be sent home from the hospital with a prescription for the narcotic pain medication that worked best throughout your stay. * Cefadroxil -take the antibiotic twice a day for 10 days to help prevent infection. * Other medications may be prescribed for specific circumstances. If you have any questions, please call the office at . * Resume previous home medications unless otherwise instructed Dressing Care: Leave the Silverlon dressing in place for 7 days. After 7 days you may remove the dressing. If the incision is not draining then you may leave the roney open to air. If there is a little bit of drainage or if the roney are getting stuck on your clothing then cover the incision with a dry dressing. The roney will be removed at your 2 week follow-up appointment. Showering: You may shower with the Silverlon dressing in place. Do not let the shower spray hit the dressing directly. Pat the Silverlon dressing dry. If the dressing becomes wet underneath, then simply remove the dressing. Keep the incision dry until you are 7 days out from the day of surgery. After 7 days you may remove the Silverlon dressing and shower with the roney exposed. Let soapy water run over the roney and pat them dry. Do not scrub or soak the incision. Diet: You may resume your previous diet. Things To Watch For: * Drainage from the incision site that occurs more than one week after your surgery. * Increased redness at the incision site. * Fever above 102 degrees Fahrenheit. * Unusual chest pain or shortness of breath. * Call [facility] at with any of the above problems Follow-Up Visit: Follow-up with Dr. Hanson's office 2-3 weeks after your day of surgery. We will remove your roney and answer any questions. If you have any additional questions or concerns, Dr Hanson is usually in the office at the same time and will be available An appointment was probably scheduled when you signed-up for surgery in the office. If you have any questions call More detailed instructions as well as Frequently Asked Questions were provided in a folder by our office when you signed-up for surgery. Please review these instructions when you get home. If you have any further questions or concerns, please feel free to call the office at [phone] Pending Studies at Discharge: No Stand-Alone Forms: My [facility] [employer], Smoking Cessation Medications and DC Order Prescriptions: New cefadroxil 500 mg capsule 500 mg PO BID 10 Days Qty: 20 0RF oxycodone 5 mg tablet 5 mg PO Q6H PRN (Reason: pain) Qty: 30 0RF Continued albuterol sulfate 90 mcg/actuation HFA aerosol inhaler 2 puffs inhalation Q6H PRN (Reason: asthma) ipratropium-albuterol 0.5 mg-3 mg(2.5 mg base)/3 mL solution for nebulization 3 ml inhalation Q6H PRN (Reason: asthma) omeprazole 40 mg capsule,delayed release(DR/EC) 40 mg PO QAM atorvastatin 40 mg tablet 40 mg PO QPM potassium chloride 10 mEq tablet extended release 20 meq PO BID torsemide 20 mg tablet 100 mg PO BID benzonatate 200 mg capsule 100 mg PO TID PRN (Reason: Cough) gabapentin 600 mg tablet 600 mg PO TID paroxetine HCl [Paxil] 10 mg Tablet 10 mg PO QAM trazodone 50 mg tablet 50 mg PO HS PRN (Reason: Sleep) meloxicam 15 mg tablet 15 mg PO QAM prochlorperazine maleate 10 mg tablet 10 mg PO UD PRN (Reason: Nausea) tramadol 50 mg tablet 50 mg PO Q8H PRN (Reason: Pain) oxycodone-acetaminophen 5-325 mg Tablet 1 tab PO HS PRN (Reason: Pain) baclofen 10 mg tablet 10 mg PO TID montelukast 10 mg tablet 10 mg PO QAM sertraline 50 mg tablet 50 mg PO QAM insulin aspart U-100 [Novolog FlexPen U-100 Insulin] 100 unit/mL (3 mL) Insulin Pen See Rx Instructions .ROUTE .COMPLEX Rx Instructions: 15 mins prior to meals, takes 20 units, insulin glargine [Lantus Solostar U-100 Insulin] 100 unit/mL (3 mL) Insulin Pen 55 unit SUBCUT QPM Rx Instructions: 9pm Trelegy Ellipta 100-62.5-25 mcg blister with device 1 inh INHALATION QPM Trulicity 4.5 mg/0.5 mL pen injector 4.5 mg SUBCUT WK aspirin 81 mg Capsule 81 mg PO QAM Discharge Orders: Discharge Order (Routine); Ordered 09/02/24 Ordered By: Aramis Hanson Admission Data Admit Date/Time: 09/01/24 12:43 Attending Provider: Aramis Hanson Admit Provider: Aramis Hanson Primary Care Provider: Sofie Casey
[2024-09-02] MEDS ORDERED: UMECLIDINIUM/VILANTEROL 62.5/25MCG 7 PUFFS/INHALER INH SCH (09:00)
[2024-09-02] MEDS ORDERED: FLUTICASONE FUROATE 100MCG 14 PUFFS/INHALER INH SCH (09:00)
[2024-09-02] MEDS: LANTUS PER UNIT CHARGE SC SCH (20:28)
[2024-09-03] MEDS: traMADol HCL 50 MG TABLET PO PRN (00:06)
[2024-09-03] MEDS: oxyCODONE HCL IR 5 MG TAB (IMMEDIATE RELEASE) PO PRN (04:46)
[2024-09-03 07:57] VITALS: RESP 18
--- NOTE | 2024-09-03 14:08 | Pharmacy Report ---
Pharmacy Glycemic Short Note 2 - Date of Service September 03, 2024 - Glycemic Short BSG Results (Last 24 hours): 09/02/24 09/02/24 09/03/24 16:35 20:03 07:36 POC Glucose 132 H 157 H 218 H 09/03/24 11:36 POC Glucose 123 H OUTPATIENT ANTIDIABETIC REGIMEN: * Lantus 55 units SQ Q PM * Novolog 20 units AC * Trulicity 4.5mg SQ weekly HbA1c 8.6% on 08-09-24 ASSESSMENT: 09/03: * Dorys received 111 units of insulin yesterday, 55 basal + 56 bolus. BSGs were: 252-206-702-157 mg/dL. * Fasting BSG was 218 mg/dL this AM. Patient did received some crackers prior to BSG this AM. No change to basal given that info. * Tolerating diet on POD #1. No change to Novolog. 09/01: * 63 year old female was admitted today for a left reverse total shoulder arthroplasty. Pharmacy has been consulted for glycemic management postop. * Preop BSG was 251mg/dL and 241mg/dL post op. She did receive 10mg iv dexamethasone x 1 preop. Per RN, she did have 55 units of Lantus last evening. Lantus 55 units SQ x 1 was ordered for this afternoon and weight based bolus insulin dosing with a stress of 2 has also been started. * Overnight BSG checks have been added to ensure BSG returns closer to goal range. PLAN FOR INPATIENT GLYCEMIC CONTROL: * Basal insulin * Lantus 55 units SC HS * Bolus insulin * NovoLog per scale ACHS or Q6hrs while NPO * Goal Range: Low 110 mg/dL - High 140 mg/dL * Correction Factor: 15 mg/dL/unit * Nutritional / Prandial insulin per carb ratio of 1 unit per 4 grams CHO consumed
--- NOTE | 2024-09-04 08:46 | Orthopedic Progress Note ---
Date of Service September 04, 2024 Assessment & Plan (1) Status post reverse total replacement of left shoulder: Continue PT/OT. Continue sling LUE. d/c planning: awaiting discharge to rehab facility. Will discuss with Dr. Hanson Subjective .63 year old patient POD 3 from left reverse tsa. Having some shoulder pain. Awaiting placement at rehab. Review of Systems All systems reviewed & are unremarkable except as noted in HPI & below. Physical Exam .alert and oriented. NAD Dressing clean, dry, intact. Able to flex and extend fingers and wrist appropr iately. NVI Results & Data Results & Data Laboratory Results . Diagnostic Findings . PG Care Time/CCT Total # of Minutes Spent Total Time Spent with Patient: Total time spent is greater than 50% in coordination of care (as documented) at patient's floor/unit and/or counseling patient: Coding Level of Care Code 18437 Post Operative Follow-Up Diagnoses Status post reverse total replacement of left shoulder Z96.612
[2024-09-04 20:39] VITALS: TEMP 98.2
[2024-09-05 07:42] VITALS: BP 105/68; PULSE 72; O2SAT 93
--- NOTE | 2024-09-05 09:09 | Pharmacy Report ---
Pharmacy Glycemic Short Note 2 - Date of Service September 05, 2024 - Glycemic Short BSG Results (Last 24 hours): 09/04/24 09/04/24 09/04/24 11:14 16:31 20:31 POC Glucose 200 H 204 H 131 H 09/05/24 07:40 POC Glucose 162 H OUTPATIENT ANTIDIABETIC REGIMEN: * Lantus 55 units SQ Q PM * Novolog 20 units AC * Trulicity 4.5mg SQ weekly HbA1c 8.6% on 08-09-24 ASSESSMENT: 09/05: * Blood sugars elevated yesterday, ranging 131-204 mg/dL * Fasting blood sugar elevated at 162 mg/dL this morning, consider basal increase this evening * Awaiting rehab placement 09/03: * Dorys received 111 units of insulin yesterday, 55 basal + 56 bolus. BSGs were: [phone] mg/dL. * Fasting BSG was 218 mg/dL this AM. Patient did received some crackers prior to BSG this AM. No change to basal given that info. * Tolerating diet on POD #1. No change to Novolog. 09/01: * 63 year old female was admitted today for a left reverse total shoulder arthroplasty. Pharmacy has been consulted for glycemic management postop. * Preop BSG was 251mg/dL and 241mg/dL post op. She did receive 10mg iv dexamethasone x 1 preop. Per RN, she did have 55 units of Lantus last evening. Lantus 55 units SQ x 1 was ordered for this afternoon and weight based bolus insulin dosing with a stress of 2 has also been started. * Overnight BSG checks have been added to ensure BSG returns closer to goal range. PLAN FOR INPATIENT GLYCEMIC CONTROL: * Basal insulin * Lantus 55 units SC HS * Bolus insulin - tighten carb ratio * NovoLog per scale ACHS or Q6hrs while NPO * Goal Range: Low 110 mg/dL - High 140 mg/dL * Correction Factor: 15 mg/dL/unit * Nutritional / Prandial insulin per carb ratio of 1 unit per 3 grams CHO consumed
--- NOTE | 2024-09-05 10:12 | Orthopedic Progress Note ---
Date of Service September 05, 2024 Assessment & Plan (1) Status post reverse total replacement of left shoulder: Continue PT/OT. Continue sling LUE. d/c planning: awaiting discharge to rehab facility. Will discuss with Dr. Valentin Flores Everette Saul was seen and evaluated this morning resting comfortably in no apparent distress. She is awaiting placement at this point. She got approval to go to [facility] but is currently waiting for insurance authorization. She notes at work with physical therapy and Occupational Therapy while inpatient has been going well. She is currently in her sling as directed. She denies any neck pain, distal extremity pain, numbness/ting, or paresthesias. She denies any other concerns today. Review of Systems All systems reviewed & are unremarkable except as noted in HPI & below. Physical Exam . Focused exam of the left shoulder shows intact dressing with no signs of active bleeding, discharge, or signs of infection. She is currently maintaining her sling. She is able to extend and flex at the elbow as well as with range of motion and strength to the above. +2 radial pulse. Less than 2-second capil margarette refill. Normal sensation. Neurovascular intact. Results & Data Results & Data Laboratory Results . Diagnostic Findings . PG Care Time/CCT Total # of Minutes Spent Total Time Spent with Patient: Total time spent is greater than 50% in coordination of care (as documented) at patient's floor/unit and/or counseling patient: Coding Level of Care Code 83040 Post Operative Follow-Up Diagnoses Status post reverse total replacement of left shoulder Z96.612
--- NOTE | 2024-09-05 10:16 | Discharge Summary ---
Date of Service September 05, 2024 Principal Diagnosis Same as "Discharge Diagnosis" noted below under Discharge Instructions. Discharge Exam . Focused exam of the left shoulder shows intact dressing with no signs of active bleeding, discharge, or signs of infection. She is currently maintaining her sling. She is able to extend and flex at the elbow as well as with range of motion and strength to the above. +2 radial pulse. Less than 2-second capillary refill. Normal sensation. Neurovascular intact. Discharge Data Procedures Performed Operation Date: 09/01/24 11:00 Actual Procedures p Left Reverse Total Shoulder Arthroplasty(Left) - Aramis Hanson DO Ordered Studies 09/01/24 05:00 US - OR guided needle placemen Routine Hospital Course (1) Status post reverse total replacement of left shoulder: On 09/01/2024, Dorys arrived at [facility] and underwent a left reverse total shoulder arthroplasty performed by Dr. Hanson with no complications. She had a general anesthetic. Postoperatively, she was transferred to the PACU for immediate postoperative management and then to the general orthopedic floor in stable condition. Her hospital course was uneventful. On postoperative day #1, her vital signs are stable and her pain was well-controlled. She worked well with physical therapy working on range of motion exercises. She was stable at this point for discharge she requested to be discharged to a long-term facility. Referrals were sent out and the remaining time of her inpatient stay was awaiting home placement and insurance authorization. There is no significant events that happened on postoperative day #2 through postoperative day #4. On postoperative day #4, her vital signs are stable her pain is well-controlled. She participated well physical therapy working on range of motion exercises. She was then discharged to a skilled rehabilitation center in stable condition. She will follow-up with orthopedics in 2 weeks for continued postoperative management or sooner if needed. PG Care Time/CCT Total # of Minutes Spent Total Time Spent with Patient: Total time spent is greater than 50% in coordination of care (as documented) at patient's floor/unit and/or counseling patient: Discharge Plan Discharge Items Patient Disposition: Transfer Inpatient Rehab Fac Reason For Visit: Left Shoulder Arthritis Discharge Diagnosis: Left shoulder replacement Activity: Per Instructions section Non-emergency contact: Surgeon Call non-emergency contact if: your wound has increased redness and your wound has increased drainage Follow-up/Referrals: Sofie Casey DO [Primary Care Provider] - Diet: Regular Addtl Attending Provider Instructions: Activity and Therapy Recommendations: * If you are using [facility] then therapy will be provided at your home until they feel you have accomplished all of your goals. * If you are using [facility] then Physical Therapy will be provided until they feel you are ready to start Outpatient Physical Therapy. * If you are not using home therapy then Outpatient Physical Therapy should start about 3-5 days from your day of surgery. Therapy will last about 8-12 weeks * Wear your sling for 3 weeks, unless otherwise instructed. You may remove your sling to shower and to dress, but otherwise, you should be in your sling at all times, including while sleeping * The shoulder replacement is very stable and you can use your hand while in the sling * You were shown a series of exercises in the hospital. Do these exercises daily including the exercises you were shown in physical therapy. Medications: * Narcotic You will likely be sent home from the hospital with a prescription for the narcotic pain medication that worked best throughout your stay. * Cefadroxil -take the antibiotic twice a day for 10 days to help prevent infection. * Other medications may be prescribed for specific circumstances. If you have any questions, please call the office at . * Resume previous home medications unless otherwise instructed Dressing Care: Leave the Silverlon dressing in place for 7 days. After 7 days you may remove the dressing. If the incision is not draining then you may leave the roney open to air. If there is a little bit of drainage or if the roney are getting stuck on your clothing then cover the incision with a dry dressing. The roney will be removed at your 2 week follow-up appointment. Showering: You may shower with the Silverlon dressing in place. Do not let the shower spray hit the dressing directly. Pat the Silverlon dressing dry. If the dressing becomes wet underneath, then simply remove the dressing. Keep the incision dry until you are 7 days out from the day of surgery. After 7 days you may remove the Silverlon dressing and shower with the roney exposed. Let soapy water run over the roney and pat them dry. Do not scrub or soak the incision. Diet: You may resume your previous diet. Things To Watch For: * Drainage from the incision site that occurs more than one week after your surgery. * Increased redness at the incision site. * Fever above 102 degrees Fahrenheit. * Unusual chest pain or shortness of breath. * Call [facility] at with any of the above problems Follow-Up Visit: Follow-up with Dr. Hanson's office 2-3 weeks after your day of surgery. We will remove your roney and answer any questions. If you have any additional questions or concerns, Dr Hanson is usually in the office at the same time and will be available An appointment was probably scheduled when you signed-up for surgery in the office. If you have any questions call More detailed instructions as well as Frequently Asked Questions were provided in a folder by our office when you signed-up for surgery. Please review these instructions when you get home. If you have any further questions or concerns, please feel free to call the office at [phone] Pending Studies at Discharge: No Stand-Alone Forms: My [facility] [employer], Smoking Cessation Skilled Items Patient informed of condition?: Yes DNR: No Discharge Level of Care: Acute rehab Communicable Disease: No Discharge Prognosis: Stable Lines: None Urinary Catheter: No Medications and DC Order Prescriptions: New cefadroxil 500 mg capsule 500 mg PO BID 10 Days Qty: 20 0RF oxycodone 5 mg tablet 5 mg PO Q6H PRN (Reason: pain) Qty: 30 0RF Continued albuterol sulfate 90 mcg/actuation HFA aerosol inhaler 2 puffs inhalation Q6H PRN (Reason: asthma) ipratropium-albuterol 0.5 mg-3 mg(2.5 mg base)/3 mL solution for nebulization 3 ml inhalation Q6H PRN (Reason: asthma) omeprazole 40 mg capsule,delayed release(DR/EC) 40 mg PO QAM atorvastatin 40 mg tablet 40 mg PO QPM potassium chloride 10 mEq tablet extended release 20 meq PO BID torsemide 20 mg tablet 100 mg PO BID benzonatate 200 mg capsule 100 mg PO TID PRN (Reason: Cough) gabapentin 600 mg tablet 600 mg PO TID paroxetine HCl [Paxil] 10 mg Tablet 10 mg PO QAM trazodone 50 mg tablet 50 mg PO HS PRN (Reason: Sleep) meloxicam 15 mg tablet 15 mg PO QAM prochlorperazine maleate 10 mg tablet 10 mg PO UD PRN (Reason: Nausea) tramadol 50 mg tablet 50 mg PO Q8H PRN (Reason: Pain) oxycodone-acetaminophen 5-325 mg Tablet 1 tab PO HS PRN (Reason: Pain) baclofen 10 mg tablet 10 mg PO TID montelukast 10 mg tablet 10 mg PO QAM sertraline 50 mg tablet 50 mg PO QAM insulin aspart U-100 [Novolog FlexPen U-100 Insulin] 100 unit/mL (3 mL) Insulin Pen See Rx Instructions .ROUTE .COMPLEX Rx Instructions: 15 mins prior to meals, takes 20 units, insulin glargine [Lantus Solostar U-100 Insulin] 100 unit/mL (3 mL) Insulin Pen 55 unit SUBCUT QPM Rx Instructions: 9pm Trelegy Ellipta 100-62.5-25 mcg blister with device 1 inh INHALATION QPM Trulicity 4.5 mg/0.5 mL pen injector 4.5 mg SUBCUT WK aspirin 81 mg Capsule 81 mg PO QAM Discharge Orders: Discharge Order (Routine); Ordered 09/05/24 Ordered By: Sean Awad Admission Data Admit Date/Time: 09/04/24 06:27 Attending Provider: Aramis Hanson Admit Provider: Aramis Hanson Primary Care Provider: Sofie Casey Other Providers: [place]; [place],[facility]
== END 2024-09-05 12:30 | DRG 483 ==
LOC: 3E 09:23 → ASU 09:23